=== PATIENT | female | born 1995 | race Caucasian/White ===

== ENCOUNTER 2016-11-05 20:50 | Emergency (ER) | payer MEDICAID ==
--- NOTE | 2016-11-05 21:11 | EDM.PDOC ---
ED HPI Allergic Reaction - General Chief Complaint: Allergic Reaction Stated Complaint: ALLERGIC REACTION Time Seen by Provider: 11/05/16 20:57 Source of Information: Reports: Patient, Family (Boyfriend) History Limitations: Reports: No limitations - History of Present Illness INITIAL COMMENTS - FREE TEXT/NARRATIVE: Presents with her boyfriend who reports an anaphylactic reaction. 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 The patient and her boyfriend were out to dinner, she had a dessert that a did not think had coconut in it but upon further investigation, it was the fifth ingredient. She had an EpiPen with her and it was injected as soon as symptoms began. - Related Data Allergies/ADRs: Allergies Allergy/AdvReac Type Severity Reaction Status Date / Time coconut oil Allergy Anaphylactic Verified 11/05/16 20:54 Shock diphenhydramine Allergy Seizure Verified 11/05/16 20:54 [From Benadryl] metoclopramide [From Reglan] Allergy Agitation Verified 11/05/16 20:54 Home Meds: Home Meds levETIRAcetam [Keppra] 1 tab PO DAILY 06/29/16 [History] Albuterol Sulfate [Proair Respiclick] 1 puff INH ASDIRECTED 09/04/16 [History] Fluticasone/Salmeterol [Advair Diskus 500-50] 1 puff INH ASDIRECTED 09/04/16 [ History] EPINEPHrine [Epipen 2-Foster] 0.3 mg IJ ONETIME #0.3 ml 11/05/16 [Rx] Past Medical History HEENT History: Reports: None Cardiovascular History: Reports: None, Other (see below) Other Cardiovascular History: abnormal heart beat Respiratory History: Reports: Asthma Gastrointestinal History: Reports: None Genitourinary History: Reports: None [employer]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 Musculoskeletal History: Reports: None Neurological History: Reports: Seizure Psychiatric History: Reports: Anxiety, Depression Endocrine/Metabolic History: Reports: None Hematologic History: Reports: None Oncologic (Cancer) History: Reports: None Dermatologic History: Reports: None - Infectious Disease History Infectious Disease History: Reports: None - Past Surgical History HEENT Surgical History: Reports: Tonsillectomy Social & Family History - Family History Family Medical History: Noncontributory - Tobacco Use Smoking Status *Q: Never Smoker Second Hand Smoke Exposure: No - Caffeine Use Caffeine Use: Reports: Coffee - Recreational Drug Use Recreational Drug Use: No ED ROS ALLERGIC REACTION - Review of Systems Review Of Systems: ROS reveals no pertinent complaints other than HPI. ED EXAM GENERAL NO PERIP PULSE - Physical Exam Exam: See Below Exam Limited By: Other (initially obtunded) General Appearance: alert, no apparent distress Ears: normal external exam Nose: normal inspection Throat/Mouth: Normal inspection, Normal oropharynx Head: atraumatic, normocephalic Neck: normal inspection Respiratory/Chest: no respiratory distress, lungs clear, normal breath sounds, no accessory muscle use Cardiovascular: normal peripheral pulses, regular rate, rhythm, no murmur, tachycardia GI/Abdominal: soft Extremities: normal inspection Neurological: other (Initially somewhat flaccid but quickly regained tone after arrival) Psychiatric: normal affect, normal mood Skin Exam: Warm, Dry, Intact, Normal color, No rash Lymphatic: no adenopathy Course - Vital Signs Last Recorded V/S: Last Vital Signs Temp 37.1 C 11/05/16 20:54 Pulse 125 H 11/05/16 20:54 Resp 23 H 11/05/16 20:54 BP 154/92 H 11/05/16 20:54 Pulse Ox 100 11/05/16 20:54 - Re-Assessments/Exams Free Text/Narrative Re-Assessment/Exam: 11/05/16 21:15 Now awake, alert orientated and asymptomatic. Her boyfriend is here with her. He states that she had an apple dessert that they had no idea that it would have coconut in it. After she started having problems with lightheadedness and anaphylaxis, he inspected the ingredients and coconut oil was the fifth ingredient. Departure - Departure Time of Disposition: 20:54 Disposition: Home, Self-Care 01 Clinical Impression: Anaphylaxis Qualifiers: Encounter type: initial encounter Qualified Code(s): T78.2XXA - Anaphylactic shock, unspecified, initial encounter Referrals: PCP,None [Primary Care Provider] - [facility] [Outside] [facility] [Outside] Additional Instructions: 1. read labels and avoid coconut products 2. EpiPen as needed for anaphylaxis
[2016-11-05 21:49] VITALS: BP 140/60
== END 2016-11-05 21:31 | disposition home or self-care (01) ==
LOC: MW.ED 20:50
DX: T78.2XXA Anaphylactic shock, unspecified, initial encounter (principal); Z88.8 Allergy status to other drugs, medicaments and biological substances; Z79.899 Other long term (current) drug therapy
CPT/HCPCS: 93005; 99283; 99284-25

== ENCOUNTER 2016-11-11 16:45 | Emergency (ER) | payer MEDICAID ==
[2016-11-11] MEDS ORDERED: Albuterol/Ipratropium 3.0-0.5 MG/3 ML Neb Soln NEB ONE (17:05)
--- NOTE | 2016-11-11 17:19 | EDM.PDOC ---
ED HISTORY OF PRESENT ILLNESS - General Chief Complaint: Respiratory Problem Stated Complaint: CONGESTION/EAR PAIN/TROUBLE BREATHING Time Seen by Provider: 11/11/16 17:00 Source of Information: Reports: Patient History Limitations: Reports: No limitations - History of Present Illness INITIAL COMMENTS - FREE TEXT/NARRATIVE: HISTORY AND PHYSICAL: History of present illness: [Patient comes to the emergency room complaining of 2 weeks of generalized fatigue and malaise. She's had headaches, clear runny nose, tight cough in her chest, and occasional face pain. She's felt fever and chills on and off during those 2 weeks. She has a history of asthma for which she takes Advair and albuterol when necessary. She's had several ill contacts. No abdominal pain nausea or vomiting. No change in bowel or bladder. Throat is sore at times. Ears have been uncomfortable for the past couple of days.] Review of systems: As per history of present illness and below otherwise all systems reviewed and negative. Past medical history: As per history of present illness and as reviewed below otherwise noncontributory. Surgical history: As per history of present illness and as reviewed below otherwise noncontributory. Social history: No reported history of drug or alcohol abuse. Family history: As per history of present illness and as reviewed below otherwise noncontributory. Physical exam: HEENT: Atraumatic, normocephalic. pupils reactive, negative for conjunctival pallor or scleral icterus, mucous membranes moist, throat clear, neck supple, nontender, trachea midline. Lungs: Clear to auscultation, breath sounds equal bilaterally, chest nontender. Heart: S1S2, regular, negative for clicks, rubs, or JVD. Abdomen: Soft, nondistended, nontender. Negative for masses or hepatosplenomegaly. Negative for costovertebral tenderness. Pelvis: Stable nontender. Genitourinary: Deferred. Rectal: Deferred. Extremities: Atraumatic, negative for cords or calf pain. Neurovascular unremarkable. Neuro: Awake, alert, oriented. Cranial nerves II through XII unremarkable. Cerebellum unremarkable. Motor and sensory unremarkable throughout. Exam nonfocal. Diagnostics: [Influenza swab] Therapeutics: [DuoNeb] Impression: [viral rhinitis] Plan: [Discussed w/ patient that influenza swab is negative. Ability to take deep breaths improved significantly following DuoNeb treatment. Discussed with patient that she has a viral syndrome. Recommend conservative supportive therapies. All questions are answered and concerns are addressed] Definitive disposition and diagnosis as appropriate pending reevaluation and review of above. - Related Data Allergies/ADRs: Allergies Allergy/AdvReac Type Severity Reaction Status Date / Time coconut oil Allergy Anaphylactic Verified 11/05/16 20:54 Shock diphenhydramine Allergy Seizure Verified 11/05/16 20:54 [From Benadryl] metoclopramide [From Reglan] Allergy Agitation Verified 11/05/16 20:54 narcotics Allergy Other Uncoded 11/11/16 17:05 Home Meds: Home Meds levETIRAcetam [Keppra] 2 tab PO BIDPC 06/29/16 [History] Albuterol Sulfate [Proair Respiclick] 1 puff INH ASDIRECTED 09/04/16 [History] Fluticasone/Salmeterol [Advair Diskus 500-50] 1 puff INH ASDIRECTED 09/04/16 [ History] EPINEPHrine [Epipen 2-Foster] 0.3 mg IJ ONETIME #0.3 ml 11/05/16 [Rx] Past Medical History HEENT History: Reports: None Cardiovascular History: Reports: None, Other (see below) Other Cardiovascular History: abnormal heart beat Respiratory History: Reports: Asthma Gastrointestinal History: Reports: None Genitourinary History: Reports: None 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 Musculoskeletal History: Reports: None Neurological History: Reports: Seizure Psychiatric History: Reports: Anxiety, Depression Endocrine/Metabolic History: Reports: None Hematologic History: Reports: None Oncologic (Cancer) History: Reports: None Dermatologic History: Reports: None - Infectious Disease History Infectious Disease History: Reports: None - Past Surgical History HEENT Surgical History: Reports: Tonsillectomy Social & Family History - Family History Family Medical History: Noncontributory - Tobacco Use Smoking Status *Q: Never Smoker Second Hand Smoke Exposure: No - Caffeine Use Caffeine Use: Reports: Coffee - Recreational Drug Use Recreational Drug Use: No ED ROS GENERAL - Review of Systems Review Of Systems: ROS reveals no pertinent complaints other than HPI. ED EXAM, GENERAL - Physical Exam Exam: See Below Course - Vital Signs Last Recorded V/S: Last Vital Signs Temp 98.1 F 11/11/16 18:30 Pulse 81 11/11/16 18:30 Resp 20 11/11/16 18:30 BP 102/64 11/11/16 18:30 Pulse Ox 96 11/11/16 18:30 - Orders/Labs/Meds Orders: Active Orders 24 hr Category Date Time Status RT Aerosol Therapy [RC] ASDIRECTED Care 11/11/16 17:05 Active Meds: Medications Discontinued Medications Generic Name Dose Route Start Last Admin Trade Name Freq PRN Reason Stop Dose Admin Albuterol/Ipratropium 3 ml 11/11/16 17:05 11/11/16 17:35 Duoneb 3.0-0.5 Mg/3 Ml NEB 11/11/16 17:06 3 ml ONETIME ONE Administration Departure - Departure Time of Disposition: 18:05 Disposition: Home, Self-Care 01 Condition: good Clinical Impression: Cold virus Instructions: Viral Respiratory Infection Referrals: PCP,None [Primary Care Provider] - Forms: ED Department Discharge Additional Instructions: The following information is given to patients seen in the emergency department who are being discharged to home. This information is to outline your options for follow-up care. We provide all patients seen in our emergency department with a follow-up referral. The need for follow-up, as well as the timing and circumstances, are variable depending upon the specifics of your emergency department visit. If you don't have a primary care physician on staff, we will provide you with a referral. We always advise you to contact your personal physician following an emergency department visit to inform them of the circumstance of the visit and for follow-up with them and/or the need for any referrals to a consulting specialist. The emergency department will also refer you to a specialist when appropriate. This referral assures that you have the opportunity for follow-up care with a specialist. All of these measure are taken in an effort to provide you with optimal care, which includes your follow-up. Under all circumstances we always encourage you to contact your private physician who remains a resource for coordinating your care. When calling for follow-up care, please make the office aware that this follow-up is from your recent emergency room visit. If for any reason you are refused follow-up, please contact the [facility] emergency department at and asked to speak to the emergency department charge nurse. [facility] [address] [place] [id number] Followup with your local primary care provider or at the clinic listed above in 48 hours. Tylenol or ibuprofen as needed for fever or discomfort. Robitussin or Delsym cough syrup as needed. Use albuterol inhaler 2 to 3 times daily. Handwashing to prevent spread illness this. Return to ER as needed as discussed - My Orders Last 24 Hours: My Active Orders 11/11/16 17:05 RT Aerosol Therapy [RC] ASDIRECTED - Assessment/Plan Last 24 Hours: My Active Orders 11/11/16 17:05 RT Aerosol Therapy [RC] ASDIRECTED
[2016-11-11 19:21] VITALS: BP 102/64
== END 2016-11-11 18:31 | disposition home or self-care (01) ==
LOC: MW.ED 16:45
DX: J31.0 Chronic rhinitis (principal); B97.89 Other viral agents as the cause of diseases classified elsewhere; J45.909 Unspecified asthma, uncomplicated; F41.8 Other specified anxiety disorders; Z98.890 Other specified postprocedural states; Z88.5 Allergy status to narcotic agent; Z88.8 Allergy status to other drugs, medicaments and biological substances
CPT/HCPCS: 87804; 94664; 99283-25; 99284

== ENCOUNTER 2016-11-20 14:49 | Emergency (ER) | payer MEDICAID ==
--- NOTE | 2016-11-20 15:05 | EDM.PDOC ---
<KaurMaria Del Carmen viera - Last Filed: 11/20/16 15:04> ED HPI HEADACHE COMPLAINT - General Chief Complaint: Headache Stated Complaint: HEADACHES Time Seen by Provider: 11/20/16 15:04 Source of Information: Reports: Patient History Limitations: Reports: No limitations - Related Data Allergies/ADRs: Allergies Allergy/AdvReac Type Severity Reaction Status Date / Time coconut oil Allergy Anaphylactic Verified 11/05/16 20:54 Shock diphenhydramine Allergy Seizure Verified 11/05/16 20:54 [From Benadryl] metoclopramide [From Reglan] Allergy Agitation Verified 11/05/16 20:54 narcotics Allergy Other Uncoded 11/11/16 17:05 Home Meds: Home Meds levETIRAcetam [Keppra] 2 tab PO BIDPC 06/29/16 [History] Albuterol Sulfate [Proair Respiclick] 1 puff INH ASDIRECTED 09/04/16 [History] Fluticasone/Salmeterol [Advair Diskus 500-50] 1 puff INH ASDIRECTED 09/04/16 [ History] EPINEPHrine [Epipen 2-Foster] 0.3 mg IJ ONETIME #0.3 ml 11/05/16 [Rx] SUMAtriptan [Imitrex] 25 mg PO ONETIME 11/20/16 [History] Past Medical History HEENT History: Reports: None Cardiovascular History: Reports: None, Other (see below) Other Cardiovascular History: abnormal heart beat "clicks" Respiratory History: Reports: Asthma Gastrointestinal History: Reports: None Genitourinary History: Reports: None [employer]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 Musculoskeletal History: Reports: None Neurological History: Reports: Migraines, Seizure Psychiatric History: Reports: Anxiety, Depression Endocrine/Metabolic History: Reports: None Hematologic History: Reports: None Oncologic (Cancer) History: Reports: None Dermatologic History: Reports: None - Infectious Disease History Infectious Disease History: Reports: None - Past Surgical History HEENT Surgical History: Reports: Tonsillectomy Cardiovascular Surgical History: Reports: None Respiratory Surgical History: Reports: None Neurological Surgical History: Reports: None Social & Family History - Family History Family Medical History: Noncontributory - Tobacco Use Smoking Status *Q: Never Smoker Second Hand Smoke Exposure: No - Caffeine Use Caffeine Use: Reports: Coffee, Energy drinks, Soda, Tea Caffeine Use Comment: no caffinee in 1 week - Recreational Drug Use Recreational Drug Use: No Course - Vital Signs Last Recorded V/S: Last Vital Signs Temp 37.0 C 11/20/16 14:57 Pulse 95 11/20/16 14:57 Resp 16 11/20/16 14:57 BP 125/75 11/20/16 14:57 Pulse Ox 97 11/20/16 14:57 - Orders/Labs/Meds Orders: Active Orders 24 hr Category Date Time Status EKG Documentation Completion [RC] STAT Care 11/20/16 15:09 Active DRUG SCREEN, URINE [URCHEM] Stat Lab 11/20/16 15:07 Uncollected Sodium Chloride 0.9% [Normal Saline] 1,000 ml Med 11/20/16 15:15 Active IV STAT Sodium Chloride 0.9% [Saline Flush] Med 11/20/16 15:07 Active 10 ml FLUSH ASDIRECTED PRN Sodium Chloride 0.9% [Saline Flush] Med 11/20/16 15:08 Active 10 ml FLUSH ASDIRECTED PRN Sodium Chloride 0.9% [Saline Flush] Med 11/20/16 15:07 Active 2.5 ml FLUSH ASDIRECTED PRN Sodium Chloride 0.9% [Saline Flush] Med 11/20/16 15:08 Active 2.5 ml FLUSH ASDIRECTED PRN Saline Lock Insert [OM.PC] Stat Oth 11/20/16 15:08 Ordered Saline Lock Insert [OM.PC] Stat Oth 11/20/16 15:09 Ordered Medication Orders Sodium Chloride (Normal Saline) 1,000 mls @ 999 mls/hr IV STAT JEROYM Sodium Chloride (Saline Flush) 10 ml FLUSH ASDIRECTED PRN PRN Reason: Keep Vein Open Sodium Chloride (Saline Flush) 2.5 ml FLUSH ASDIRECTED PRN PRN Reason: Keep Vein Open Sodium Chloride (Saline Flush) 10 ml FLUSH ASDIRECTED PRN PRN Reason: Keep Vein Open Sodium Chloride (Saline Flush) 2.5 ml FLUSH ASDIRECTED PRN PRN Reason: Keep Vein Open Labs: Laboratory Tests 11/20/16 11/20/16 Range/Units 15:33 15:33 WBC 9.41 (4.0-11.0) K/uL RBC 4.90 (4.30-5.90) M/uL Hgb 13.6 (12.0-16.0) g/dL Hct 40.9 (36.0-46.0) % MCV 83.5 (80.0-98.0) fL MCH 27.8 (27.0-32.0) pg MCHC 33.3 (31.0-37.0) g/dL RDW Std Deviation 38.0 (28.0-62.0) fl RDW Coeff of Roger 13 (11.0-15.0) % Plt Count 216 (150-400) K/uL MPV 10.20 (7.40-12.00) fL Neut % (Auto) 71.6 (48.0-80.0) % Lymph % (Auto) 19.9 (16.0-40.0) % Mcdonough % (Auto) 6.6 (0.0-15.0) % Eos % (Auto) 1.6 (0.0-7.0) % Baso % (Auto) 0.3 (0.0-1.5) % Neut # 6.7 H (1.4-5.7) K/uL Lymph # 1.9 (0.6-2.4) K/uL Mcdonough # 0.6 (0.0-0.8) K/uL Eos # 0.2 (0.0-0.7) K/uL Baso # 0.0 (0.0-0.1) K/uL Nucleated RBC % 0.0 /100WBC Nucleated RBCs # 0 K/uL Sodium 140 (136-146) mmol/L Potassium 3.8 (3.5-5.1) mmol/L Chloride 106 (98-110) mmol/L Carbon Dioxide 27 (21-31) mmol/L BUN 13 (6.0-23.0) mg/dL Creatinine 0.7 (0.6-1.5) mg/dL Est Cr Clr Drug Dosing 106.05 mL/min Estimated GFR (MDRD) > 60.0 ml/min Glucose 104 (60-110) mg/dL Calcium 9.0 (8.8-10.8) mg/dL Meds: Medications Generic Name Dose Route Start Last Admin Trade Name Freq PRN Reason Stop Dose Admin Sodium Chloride 1,000 mls @ 999 mls/hr 11/20/16 15:15 Normal Saline IV STAT JEROMY Sodium Chloride 10 ml 11/20/16 15:08 Saline Flush FLUSH ASDIRECTED PRN Keep Vein Open Sodium Chloride 2.5 ml 11/20/16 15:08 Saline Flush FLUSH ASDIRECTED PRN Keep Vein Open Sodium Chloride 10 ml 11/20/16 15:07 Saline Flush FLUSH ASDIRECTED PRN Keep Vein Open Sodium Chloride 2.5 ml 11/20/16 15:07 Saline Flush FLUSH ASDIRECTED PRN Keep Vein Open Discontinued Medications Generic Name Dose Route Start Last Admin Trade Name Mary PRN Reason Stop Dose Admin Sodium Chloride 1,000 mls @ 999 mls/hr 11/20/16 15:08 11/20/16 15:35 Normal Saline IV 11/20/16 16:08 999 mls/hr STAT ONE Administration Ketorolac Tromethamine 30 mg 11/20/16 15:08 Toradol IVPUSH 11/20/16 15:09 ONETIME ONE Ketorolac Tromethamine 30 mg 11/20/16 15:11 11/20/16 15:35 Toradol IVPUSH 11/20/16 15:12 30 mg ONETIME ONE Administration Prochlorperazine Edisylate 5 mg 11/20/16 15:08 11/20/16 15:35 Compazine IM 11/20/16 15:09 5 mg ONETIME ONE Administration Departure - Departure Disposition: Home, Self-Care 01 Clinical Impression: Seizure, Migraine, Migraine, Seizure disorder Instructions: Recurrent Migraine Headache, [id number] Referrals: PCP,None [Primary Care Provider] - Forms: ED Department Discharge Additional Instructions: You had symptoms of a migraine headache today. Use Motrin and Tylenol as needed for pain. Follow up with your DrGerald tomorrow. Your CAT scan and labs were unremarkable. Continue your seizure medicine as prescribed and followup with your neurologist. - My Orders Last 24 Hours: My Active Orders 11/20/16 15:07 DRUG SCREEN, URINE [URCHEM] Stat Sodium Chloride 0.9% [Saline Flush] 10 ml FLUSH ASDIRECTED PRN Sodium Chloride 0.9% [Saline Flush] 2.5 ml FLUSH ASDIRECTED PRN 11/20/16 15:09 EKG Documentation Completion [RC] STAT Saline Lock Insert [OM.PC] Stat 11/20/16 15:15 Sodium Chloride 0.9% [Normal Saline] 1,000 ml IV STAT - Assessment/Plan Last 24 Hours: My Active Orders 11/20/16 15:07 DRUG SCREEN, URINE [URCHEM] Stat Sodium Chloride 0.9% [Saline Flush] 10 ml FLUSH ASDIRECTED PRN Sodium Chloride 0.9% [Saline Flush] 2.5 ml FLUSH ASDIRECTED PRN 11/20/16 15:09 EKG Documentation Completion [RC] STAT Saline Lock Insert [OM.PC] Stat 11/20/16 15:15 Sodium Chloride 0.9% [Normal Saline] 1,000 ml IV STAT <Bebeto Headley - Last Filed: 11/20/16 17:07> ED HPI HEADACHE COMPLAINT - General Source of Information: Reports: Patient History Limitations: Reports: No limitations - History of Present Illness INITIAL COMMENTS - FREE TEXT/NARRATIVE: HISTORY AND PHYSICAL: History of present illness: [21-year-old female with a history of seizures states she's compliant with her Keppra and sees a neurologist regularly, also with a history of migraines for which she discharged taking Imitrex, now came to the emergency department complaining of headache patient had gradual onset of migraine headache typical for her several hours ago. She has photophobia. Denies fever or stiff neck. Patient feels lightheaded and felt like she might faint in the waiting room. No chest pain or shortness of air. The bowel bladder habits denies possibility of patient has no focal neurologic complaints the] Review of systems: As per history of present illness and below otherwise all systems reviewed and negative. Past medical history: As per history of present illness and as reviewed below otherwise noncontributory. Surgical history: As per history of present illness and as reviewed below otherwise noncontributory. Social history: No reported history of drug or alcohol abuse. Family history: As per history of present illness and as reviewed below otherwise noncontributory. Physical exam: Patient alert but clearly pretending to have waxing and waning consciousness. Fluttering eyelids and variable compliance with exam, intermittently smiling. HEENT: Atraumatic, normocephalic, pupils reactive, negative for conjunctival pallor or scleral icterus, mucous membranes moist, throat clear, neck supple, nontender, trachea midline. Lungs: Clear to auscultation, breath sounds equal bilaterally, chest nontender. Heart: S1S2, regular, negative for clicks, rubs, or JVD. Abdomen: Soft, nondistended, nontender. Negative for masses or hepatosplenomegaly. Negative for costovertebral tenderness. Pelvis: Stable nontender. Genitourinary: Deferred. Rectal: Deferred. Extremities: Atraumatic, negative for cords or calf pain. Neurovascular unremarkable. Neuro: Awake, alert, oriented. Cranial nerves II through XII unremarkable. Cerebellum unremarkable. Motor and sensory unremarkable throughout. Exam nonfocal. Diagnostics: [] Therapeutics: [] Impression: [Migraine headache, seizure] Plan: [Signs and symptoms consistent with migraine typical for patient complicated by significant history of attention seeking manipulative behavior. Patient is known to your emergency medicine service for presentations of feining altered mental status and emotional lability. CT of the head unremarkable. Seizure typical for patient's history of seizures. Nonfocal neurologic exam. Labs unremarkable. Patient feels improved after meds and IV fluids. She is refusing to provide a urine sample for urine drug screen. Patient is alert and communicative and feels improved. No further workup or treatment clinically indicated at this time. She agrees with outpatient followup strict return precautions given. Definitive disposition and diagnosis as appropriate pending reevaluation and review of above. ED ROS GENERAL - Review of Systems Review Of Systems: See Below (See history of present illness) - Physical Exam Exam: See Below (See history of present illness) EKG INTERPRETATION EKG Date: 11/20/16 Rhythm: NSR Rate (beats/min): 86 [place]: normal EKG Interpretation Comments: Normal sinus rhythm at 86 normal axis no STEMI normal study Course - Orders/Labs/Meds Labs: Laboratory Tests 11/20/16 11/20/16 Range/Units 15:33 15:33 WBC 9.41 (4.0-11.0) K/uL RBC 4.90 (4.30-5.90) M/uL Hgb 13.6 (12.0-16.0) g/dL Hct 40.9 (36.0-46.0) % MCV 83.5 (80.0-98.0) fL MCH 27.8 (27.0-32.0) pg MCHC 33.3 (31.0-37.0) g/dL RDW Std Deviation 38.0 (28.0-62.0) fl RDW Coeff of Roger 13 (11.0-15.0) % Plt Count 216 (150-400) K/uL MPV 10.20 (7.40-12.00) fL Neut % (Auto) 71.6 (48.0-80.0) % Lymph % (Auto) 19.9 (16.0-40.0) % Mcdonough % (Auto) 6.6 (0.0-15.0) % Eos % (Auto) 1.6 (0.0-7.0) % Baso % (Auto) 0.3 (0.0-1.5) % Neut # 6.7 H (1.4-5.7) K/uL Lymph # 1.9 (0.6-2.4) K/uL Mcdonough # 0.6 (0.0-0.8) K/uL Eos # 0.2 (0.0-0.7) K/uL Baso # 0.0 (0.0-0.1) K/uL Nucleated RBC % 0.0 /100WBC Nucleated RBCs # 0 K/uL Sodium 140 (136-146) mmol/L Potassium 3.8 (3.5-5.1) mmol/L Chloride 106 (98-110) mmol/L Carbon Dioxide 27 (21-31) mmol/L BUN 13 (6.0-23.0) mg/dL Creatinine 0.7 (0.6-1.5) mg/dL Est Cr Clr Drug Dosing 106.05 mL/min Estimated GFR (MDRD) > 60.0 ml/min Glucose 104 (60-110) mg/dL Calcium 9.0 (8.8-10.8) mg/dL Departure - Departure Time of Disposition: 17:00 Condition: good
[2016-11-20] MEDS ORDERED: Sodium Chloride 0.9% 10 ML Syringe FLUSH PRN ×2 (15:07→15:08)
[2016-11-20] MEDS ORDERED: Sodium Chloride 0.9% 2.5 ML Syringe FLUSH PRN ×2 (15:07→15:08)
[2016-11-20] MEDS ORDERED: Prochlorperazine 10 MG/2 ML SDV IM ONE (15:08)
[2016-11-20] MEDS ORDERED: Ketorolac 30 MG/ML SDV IVPUSH ONE ×2 (15:08→15:11)
[2016-11-20] MEDS ORDERED: Sodium Chloride 0.9% 1,000 ML IV ONE (15:08)
[2016-11-20] MEDS ORDERED: Sodium Chloride 0.9% 1,000 ML IV SCH (15:15)
[2016-11-20 16:13] LABS: CHLORIDE,CL 106 mmol/L (98-110); SODIUM,NA 140 mmol/L (136-146)
--- NOTE | 2016-11-20 16:15 | CT ---
EXAMINATION: Non contrast CT head. Coronal and sagittal reformats. HISTORY: Headache FINDINGS: No evidence of intra or extra axial hemorrhage, mass, midline shift, hydrocephalus or edema. No hypoattenuation changes in the major vascular territories to suggest acute infarct. No abnormal intracranial calcifications are detected. No evidence of substantial vascular calcifica tions. Paranasal sinuses and mastoid air cells are well aerated without substantial findings. The orbits a nd globes appear symmetric. Pituitary fossa appears unremarkable. Calvarium is intact. No evidence of skull fracture. IMPRESSION: No acute intracranial findings.
[2016-11-20 17:45] VITALS: BP 124/73
== END 2016-11-20 17:30 | disposition home or self-care (01) ==
LOC: MW.ED 14:49
DX: G43.909 Migraine, unspecified, not intractable, without status migrainosus (principal); R56.9 Unspecified convulsions; J45.909 Unspecified asthma, uncomplicated; F41.9 Anxiety disorder, unspecified; F33.9 Major depressive disorder, recurrent, unspecified; Z79.899 Other long term (current) drug therapy; Z79.51 Long term (current) use of inhaled steroids; Z88.5 Allergy status to narcotic agent; Z88.8 Allergy status to other drugs, medicaments and biological substances; Z91.018 Allergy to other foods
CPT/HCPCS: 36415; 70450; 80048; 85025; 93005; 96361; 96372; 96374; 99284; J0780; J1885; J7040

== ENCOUNTER 2016-12-14 12:18 | Emergency (ER) | payer MEDICAID ==
--- NOTE | 2016-12-14 12:47 | EDM.PDOC ---
ED HPI ENT - General Chief Complaint: ENT Problem Stated Complaint: SORE THROAT Time Seen by Provider: 12/14/16 12:40 Source of Information: Reports: Patient History Limitations: Reports: No limitations - History of Present Illness INITIAL COMMENTS - FREE TEXT/NARRATIVE: HISTORY AND PHYSICAL: History of present illness: [Patient comes to the emergency room complaining of exquisitely sore throat for the past 4 days. She had temps up to 102 which was taken this morning. She has swollen lymph nodes in her neck and difficulty moving her neck due to discomfort. No runny nose or cough. Denies chest pain shortness of breath and difficulty breathing. Occasional nausea, but no vomiting or abdominal pain. Denies dysuria. Bilateral earaches without drainage in her ears. Has not taken any medications for her symptoms. Has a history of viral meningitis during childhood. History of tonsillectomy at age 10.] Review of systems: As per history of present illness and below otherwise all systems reviewed and negative. Past medical history: As per history of present illness and as reviewed below otherwise noncontributory. Surgical history: As per history of present illness and as reviewed below otherwise noncontributory. Social history: No reported history of drug or alcohol abuse. Family history: As per history of present illness and as reviewed below otherwise noncontributory. Physical exam: HEENT: Atraumatic, normocephalic. TMs are pearly staples with mild effusions present bilaterally. No erythema or injection. Eyes are clear. Nares are patent and without discharge. Oral mucous membranes are pink and moist. No posterior oropharyngeal swelling or exudate. Mild erythema. Neck is supple, is tender with palpation over cervical lymph nodes but no shininess is appreciated. Face and sinuses are nontender with palpation. Lungs: Clear to auscultation, breath sounds equal bilaterally. Heart: S1S2, regular rate and rhythm. Abdomen: Soft, nondistended. Mild generalized tenderness over abdomen. Negative for masses, guarding or rebound. Pelvis: Stable nontender. Genitourinary: Deferred. Rectal: Deferred. Extremities: Atraumatic, gait is normal. Neurovascular unremarkable. Neuro: Awake, alert, oriented. Cranial nerves II through XII unremarkable. Exam nonfocal. Diagnostics: [Strep swab] Impression: [Streptococcal pharyngitis] Plan: [Patient is prescribed Pen V K 500mg (#30) si po TID x 10 days 0 RF's. Recommend Tylenol and warm salt water gargles as needed for discomfort. Followup with primary care. She is in agreement with today's plan. All of her questions are answered and concerns are addressed. ] Definitive disposition and diagnosis as appropriate pending reevaluation and review of above. - Related Data Allergies/ADRs: Allergies Allergy/AdvReac Type Severity Reaction Status Date / Time coconut oil Allergy Anaphylactic Verified 12/14/16 12:33 Shock diphenhydramine Allergy Seizure Verified 12/14/16 12:33 [From Benadryl] metoclopramide [From Reglan] Allergy Agitation Verified 12/14/16 12:33 narcotics Allergy Other Uncoded 12/14/16 12:33 Home Meds: Home Meds levETIRAcetam [Keppra] 2 tab PO BIDPC 06/29/16 [History] Albuterol Sulfate [Proair Respiclick] 1 puff INH ASDIRECTED 09/04/16 [History] Fluticasone/Salmeterol [Advair Diskus 500-50] 1 puff INH ASDIRECTED 09/04/16 [ History] EPINEPHrine [Epipen 2-Foster] 0.3 mg IJ ONETIME #0.3 ml 11/05/16 [Rx] SUMAtriptan [Imitrex] 25 mg PO ONETIME 11/20/16 [History] Cetirizine [ZyrTEC] 10 mg PO DAILY 12/14/16 [History] Melatonin 5 mg PO QPM 12/14/16 [History] PNV95/Ferrous Fumarate/FA [ Tablet] 1 each PO DAILY 12/14/16 [History] Vitamin B Complex 1 each PO DAILY 12/14/16 [History] Past Medical History HEENT History: Reports: None Cardiovascular History: Reports: None Other Cardiovascular History: abnormal heart beat "clicks" Respiratory History: Reports: Asthma Gastrointestinal History: Reports: None Genitourinary History: Reports: None 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 Musculoskeletal History: Reports: None Neurological History: Reports: Migraines, Seizure Psychiatric History: Reports: Anxiety, Depression Endocrine/Metabolic History: Reports: None Hematologic History: Reports: None Immunologic History: Reports: None Oncologic (Cancer) History: Reports: None Dermatologic History: Reports: None - Infectious Disease History Infectious Disease History: Reports: None - Past Surgical History Head Surgeries/Procedures: Reports: None HEENT Surgical History: Reports: Tonsillectomy Cardiovascular Surgical History: Reports: None Respiratory Surgical History: Reports: None GI Surgical History: Reports: None Female Surgical History: Reports: None Endocrine Surgical History: Reports: None Neurological Surgical History: Reports: None Musculoskeletal Surgical History: Reports: Other (see below) Other Musculoskeletal Surgeries/Procedures:: Cyst removed from left wrist Dermatological Surgical History: Reports: None Social & Family History - Family History Family Medical History: Noncontributory - Tobacco Use Smoking Status *Q: Never Smoker Second Hand Smoke Exposure: No - Caffeine Use Caffeine Use: Reports: None Caffeine Use Comment: no caffinee in 1 week - Recreational Drug Use Recreational Drug Use: No ED ROS ENT - Review of Systems Review Of Systems: ROS reveals no pertinent complaints other than HPI. ED EXAM, ENT - Physical Exam Exam: See Below Course - Vital Signs Last Recorded V/S: Last Vital Signs Temp 98.6 F 12/14/16 12:30 Pulse 93 12/14/16 12:30 Resp 16 12/14/16 12:30 BP 130/78 12/14/16 12:30 Pulse Ox 98 12/14/16 12:30 Departure - Departure Time of Disposition: 13:40 Disposition: Home, Self-Care 01 Condition: good Clinical Impression: Strep pharyngitis Instructions: Strep Throat Referrals: PCP,None [Primary Care Provider] - Forms: ED Department Discharge Additional Instructions: The following information is given to patients seen in the emergency department who are being discharged to home. This information is to outline your options for follow-up care. We provide all patients seen in our emergency department with a follow-up referral. The need for follow-up, as well as the timing and circumstances, are variable depending upon the specifics of your emergency department visit. If you don't have a primary care physician on staff, we will provide you with a referral. We always advise you to contact your personal physician following an emergency department visit to inform them of the circumstance of the visit and for follow-up with them and/or the need for any referrals to a consulting specialist. The emergency department will also refer you to a specialist when appropriate. This referral assures that you have the opportunity for follow-up care with a specialist. All of these measure are taken in an effort to provide you with optimal care, which includes your follow-up. Under all circumstances we always encourage you to contact your private physician who remains a resource for coordinating your care. When calling for follow-up care, please make the office aware that this follow-up is from your recent emergency room visit. If for any reason you are refused follow-up, please contact the [facility] emergency department at and asked to speak to the emergency department charge nurse. [facility] [address] [place] [id number] You have strep throat. Take Tylenol as needed for fever or discomfort. Warm saltwater gargles, throat lozenges or cough drops may help with her throat discomfort. Take antibiotics as prescribed Return to ER as needed as discussed.
[2016-12-14 13:49] VITALS: BP 128/78
== END 2016-12-14 13:47 | disposition home or self-care (01) ==
LOC: MW.ED 12:18
DX: J02.0 Streptococcal pharyngitis (principal); Z88.5 Allergy status to narcotic agent; Z88.6 Allergy status to analgesic agent; Z88.8 Allergy status to other drugs, medicaments and biological substances; Z98.890 Other specified postprocedural states
CPT/HCPCS: 87880; 99282; 99283

== ENCOUNTER 2016-12-30 06:45 | Emergency (ER) | payer MEDICAID ==
[2016-12-30] MEDS ORDERED: Ketorolac 30 MG/ML SDV IVPUSH ONE (07:08)
[2016-12-30] MEDS ORDERED: Sodium Chloride 0.9% 1,000 ML IV ONE (07:08)
[2016-12-30] MEDS ORDERED: Acetaminophen/Codeine 120-12 MG/5 ML Soln 5 ML UD Cup PO ONE ×2 (07:09→07:23)
--- NOTE | 2016-12-30 07:43 | EDM.PDOC ---
ED HPI GENERAL MEDICAL PROBLEM - General Chief Complaint: ENT Problem Stated Complaint: SORE THROAT Time Seen by Provider: 12/30/16 06:55 - History of Present Illness INITIAL COMMENTS - FREE TEXT/NARRATIVE: HISTORY AND PHYSICAL: History of present illness: Patient is a 21-year-old white female she concern of sore throat patient was diagnosed with strep pharyngitis recently and had a full course of antibiotics he states his pain has worsened today she denies fever chills nausea vomiting. Review of systems: As per history of present illness and below otherwise all systems reviewed and negative. Past medical history: As per history of present illness and as reviewed below otherwise noncontributory. Surgical history: As per history of present illness and as reviewed below otherwise noncontributory. Social history: No reported history of drug or alcohol abuse. Family history: As per history of present illness and as reviewed below otherwise noncontributory. Physical exam: HEENT: Atraumatic, normocephalic, pupils reactive, negative for conjunctival pallor or scleral icterus, mucous membranes moist, throat mildly injected no peritonsillar fullness no uvular deviation, neck supple, nontender, trachea midline. Lungs: Clear to auscultation, breath sounds equal bilaterally, chest nontender. Heart: S1S2, regular, negative for clicks, rubs, or JVD. Abdomen: Soft, nondistended, nontender. Negative for masses or hepatosplenomegaly. Negative for costovertebral tenderness. Pelvis: Stable nontender. Genitourinary: Deferred. Rectal: Deferred. Extremities: Atraumatic, negative for cords or calf pain. Neurovascular unremarkable. Neuro: Awake, alert, oriented. Cranial nerves II through XII unremarkable. Cerebellum unremarkable. Motor and sensory unremarkable throughout. Exam nonfocal. Diagnostics: CBC CMP lactic acid CT neck strep screen and mono screen throat Therapeutics: Normal saline 1 L bolus Rocephin 1 g IV Tylenol with codeine 5 cc by mouth Toradol 30 mg IV Impression: #1 pharyngitis Definitive disposition and diagnosis as appropriate pending reevaluation and review of above. Throat Pain Score (Numeric/FACES): 9 - Related Data Allergies Allergy/AdvReac Type Severity Reaction Status Date / Time coconut oil Allergy Anaphylactic Verified 12/30/16 06:47 Shock diphenhydramine Allergy Seizure Verified 12/30/16 06:47 [From Benadryl] metoclopramide [From Reglan] Allergy Agitation Verified 12/30/16 06:47 narcotics Allergy Other Uncoded 12/30/16 06:47 Home Meds: Home Meds levETIRAcetam [Keppra] 2 tab PO BIDPC 06/29/16 [History] Albuterol Sulfate [Proair Respiclick] 1 puff INH ASDIRECTED 09/04/16 [History] Fluticasone/Salmeterol [Advair Diskus 500-50] 1 puff INH ASDIRECTED 09/04/16 [ History] EPINEPHrine [Epipen 2-Foster] 0.3 mg IJ ONETIME #0.3 ml 11/05/16 [Rx] SUMAtriptan [Imitrex] 25 mg PO ONETIME 11/20/16 [History] Cetirizine [ZyrTEC] 10 mg PO DAILY 12/14/16 [History] Melatonin 5 mg PO QPM 12/14/16 [History] PNV95/Ferrous Fumarate/FA [ Tablet] 1 each PO DAILY 12/14/16 [History] Vitamin B Complex 1 each PO DAILY 12/14/16 [History] Past Medical History HEENT History: Reports: None Cardiovascular History: Reports: None Other Cardiovascular History: abnormal heart beat "clicks" Respiratory History: Reports: Asthma Gastrointestinal History: Reports: None Genitourinary History: Reports: None 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 Musculoskeletal History: Reports: None Neurological History: Reports: Migraines, Seizure Psychiatric History: Reports: Anxiety, Depression Endocrine/Metabolic History: Reports: None Hematologic History: Reports: None Immunologic History: Reports: None Oncologic (Cancer) History: Reports: None Dermatologic History: Reports: None - Infectious Disease History Infectious Disease History: Reports: None - Past Surgical History Head Surgeries/Procedures: Reports: None HEENT Surgical History: Reports: Tonsillectomy Cardiovascular Surgical History: Reports: None Respiratory Surgical History: Reports: None GI Surgical History: Reports: None Female Surgical History: Reports: None Endocrine Surgical History: Reports: None Neurological Surgical History: Reports: None Musculoskeletal Surgical History: Reports: Other (see below) Other Musculoskeletal Surgeries/Procedures:: Cyst removed from left wrist Dermatological Surgical History: Reports: None Social & Family History - Family History Family Medical History: Noncontributory - Tobacco Use Smoking Status *Q: Never Smoker Second Hand Smoke Exposure: No - Caffeine Use Caffeine Use: Reports: None Caffeine Use Comment: no caffinee in 1 week - Recreational Drug Use Recreational Drug Use: No ED ROS GENERAL - Review of Systems Review Of Systems: ROS reveals no pertinent complaints other than HPI. ED EXAM, GENERAL - Physical Exam Exam: See Below (See dictation) Course - Vital Signs Last Recorded V/S: Last Vital Signs Temp 36.4 C 12/30/16 09:09 Pulse 83 12/30/16 09:09 Resp 18 12/30/16 09:09 BP 111/60 12/30/16 09:09 Pulse Ox 97 12/30/16 09:09 - Orders/Labs/Meds Orders: Active Orders 24 hr Category Date Time Status CULTURE THROAT [RM] Stat Lab 12/30/16 07:25 Received Labs: Laboratory Tests 12/30/16 12/30/16 12/30/16 Range/Units 07:26 07:26 07:26 WBC 21.65 H (4.0-11.0) K/uL RBC 4.93 (4.30-5.90) M/uL Hgb 13.8 (12.0-16.0) g/dL Hct 40.8 (36.0-46.0) % MCV 82.8 (80.0-98.0) fL MCH 28.0 (27.0-32.0) pg MCHC 33.8 (31.0-37.0) g/dL RDW Std Deviation 37.9 (28.0-62.0) fl RDW Coeff of Roger 13 (11.0-15.0) % Plt Count 196 (150-400) K/uL MPV 10.40 (7.40-12.00) fL Neut % (Auto) 88.0 H (48.0-80.0) % Lymph % (Auto) 7.3 L (16.0-40.0) % [place] % (Auto) 4.5 (0.0-15.0) % Eos % (Auto) 0.1 (0.0-7.0) % Baso % (Auto) 0.1 (0.0-1.5) % Neut # (Auto) 19.0 H (1.4-5.7) K/uL Lymph # (Auto) 1.6 (0.6-2.4) K/uL [place] # (Auto) 1.0 H (0.0-0.8) K/uL Eos # (Auto) 0.0 (0.0-0.7) K/uL Baso # (Auto) 0.0 (0.0-0.1) K/uL Nucleated RBC % 0.0 /100WBC Nucleated RBCs # 0 K/uL Lactate 0.8 (0.20-2.00) mmol/L Sodium 137 (136-146) mmol/L Potassium 3.7 (3.5-5.1) mmol/L Chloride 108 (98-110) mmol/L Carbon Dioxide 19 L (21-31) mmol/L BUN 10 (6.0-23.0) mg/dL Creatinine 0.7 (0.6-1.5) mg/dL Est Cr Clr Drug Dosing 106.05 mL/min Estimated GFR (MDRD) > 60.0 ml/min Glucose 102 (60-110) mg/dL Calcium 9.2 (8.8-10.8) mg/dL Total Bilirubin 2.6 H (0.1-1.5) mg/dL AST 15 (5-40) IU/L ALT 13 (8-54) IU/L Alkaline Phosphatase 61 (40-150) Total Protein 7.7 (6.0-8.0) g/dL Albumin 4.2 (3.5-5.0) g/dL Globulin 3.5 (2.0-3.5) g/dL Albumin/Globulin Ratio 1.2 L (1.3-2.8) Monoscreen (NEG) 12/30/16 Range/Units 07:26 WBC (4.0-11.0) K/uL RBC (4.30-5.90) M/uL Hgb (12.0-16.0) g/dL Hct (36.0-46.0) % MCV (80.0-98.0) fL MCH (27.0-32.0) pg MCHC (31.0-37.0) g/dL RDW Std Deviation (28.0-62.0) fl RDW Coeff of Roger (11.0-15.0) % Plt Count (150-400) K/uL MPV (7.40-12.00) fL Neut % (Auto) (48.0-80.0) % Lymph % (Auto) (16.0-40.0) % [place] % (Auto) (0.0-15.0) % Eos % (Auto) (0.0-7.0) % Baso % (Auto) (0.0-1.5) % Neut # (Auto) (1.4-5.7) K/uL Lymph # (Auto) (0.6-2.4) K/uL [place] # (Auto) (0.0-0.8) K/uL Eos # (Auto) (0.0-0.7) K/uL Baso # (Auto) (0.0-0.1) K/uL Nucleated RBC % /100WBC Nucleated RBCs # K/uL Lactate (0.20-2.00) mmol/L Sodium (136-146) mmol/L Potassium (3.5-5.1) mmol/L Chloride (98-110) mmol/L Carbon Dioxide (21-31) mmol/L BUN (6.0-23.0) mg/dL Creatinine (0.6-1.5) mg/dL Est Cr Clr Drug Dosing mL/min Estimated GFR (MDRD) ml/min Glucose (60-110) mg/dL Calcium (8.8-10.8) mg/dL Total Bilirubin (0.1-1.5) mg/dL AST (5-40) IU/L ALT (8-54) IU/L Alkaline Phosphatase (40-150) Total Protein (6.0-8.0) g/dL Albumin (3.5-5.0) g/dL Globulin (2.0-3.5) g/dL Albumin/Globulin Ratio (1.3-2.8) Monoscreen NEGATIVE (NEG) Meds: Medications Discontinued Medications Generic Name Dose Route Start Last Admin Trade Name Freq PRN Reason Stop Dose Admin Acetaminophen/Codeine Phosphate 5 ml 12/30/16 07:09 12/30/16 07:25 Tylenol/Codeine 120-12 Mg/5 Ml PO 12/30/16 07:10 5 ml ONETIME ONE Administration Acetaminophen/Codeine Phosphate 5 ml 12/30/16 07:23 12/30/16 07:25 Tylenol/Codeine 120-12 Mg/5 Ml PO 12/30/16 07:24 Not Given ONETIME ONE Sodium Chloride 1,000 mls @ 999 mls/hr 12/30/16 07:08 12/30/16 07:22 Normal Saline IV 12/30/16 08:08 999 mls/hr STAT ONE Administration Ceftriaxone Sodium 1,000 mg/ 50 mls @ 200 mls/hr 12/30/16 08:16 12/30/16 08: 29 Sodium Chloride IV 12/30/16 08:30 Not Given ONETIME ONE Ceftriaxone Sodium/Dextrose 1 50 mls @ 100 mls/hr 12/30/16 08:18 12/30/16 08: 29 gm/ Premix IV 12/30/16 08:47 100 mls/hr ONETIME ONE Administration Ceftriaxone Sodium/Dextrose Confirm 12/30/16 08:23 12/30/16 08:29 Rocephin In Dextrose,Iso-Osm 1 Gm/50 Ml Administered 12/30/16 08:24 Not Given Dose 50 mls @ as directed .ROUTE .STK-MED ONE Iopamidol 75 ml 12/30/16 09:39 12/30/16 09:39 Isovue Multipack-370 (76%) IVPUSH 12/30/16 09:40 75 ml ONETIME STA Administration Ketorolac Tromethamine 30 mg 12/30/16 07:08 12/30/16 07:22 Toradol IVPUSH 12/30/16 07:09 30 mg ONETIME ONE Administration Departure - Departure Time of Disposition: 08:30 Disposition: Home, Self-Care 01 Condition: good Clinical Impression: Pharyngitis Instructions: Strep Throat, [id number], Pharyngitis, [id number] Referrals: [facility] [Provider Group] PCP,None [Primary Care Provider] - Forms: ED Department Discharge - My Orders Last 24 Hours: My Active Orders 12/30/16 07:25 CULTURE THROAT [RM] Stat - Assessment/Plan Last 24 Hours: My Active Orders 12/30/16 07:25 CULTURE THROAT [RM] Stat
[2016-12-30 08:00] LABS: CHLORIDE,CL 108 mmol/L (98-110); SODIUM,NA 137 mmol/L (136-146)
[2016-12-30] MEDS ORDERED: cefTRIAXone 1,000 MG in Sodium Chloride 0.9% 50 ML IV ONE (08:16)
[2016-12-30] MEDS ORDERED: cefTRIAXone 1 GM in Premix Bag 1 BAG IV ONE (08:18)
[2016-12-30 09:11] VITALS: BP 111/60
[2016-12-30] MEDS ORDERED: Iopamidol 755 MG/ML 500 ML Multipack Bottle IVPUSH STA (09:39)
--- NOTE | 2016-12-30 11:24 | CT ---
EXAM DATE: 12/30/16 PATIENT'S AGE: 21 Patient: EMILY UGALDE Facility: [facility], [place] Site . Site : 1995 Study: CT ST Neck [id number]/24/2017 8:06:33 AM Ordering Physician: Ernie Tate Final Report: INDICATION: PAIN HISTORY: Neck pain. COMPARISON: None. TECHNIQUE: CT of the neck following intravenous contrast. 75 cc of Isovue-370 IV. Coronal/ sagittal reconstruction images. FINDINGS: There is no abnormal contrast enhancement within the supratentorial brain or posterior fossa. There is effacement of the landmarks in the nasopharynx, with diffuse soft tissue swelling. Specific, the torus tubarius and fossa Rosenmuller are not well seen. There is no displacement of the parapharyngeal fat. No drainable fluid collection. Aryepiglottic folds and piriform sinuses are within normal limits. The thyroid gland is symmetric. There are numerous, level IIa and IIb lymph nodes, which measure up to 16 mm in long axis dimension on series 201, image 37. The superior mediastinum is within normal limits. The intrathoracic trachea is patent. There is no apical pneumothorax. The parotid space, carotid space, paravertebral space, telephone order clerk space, and infratemporal fossa are within normal limits. The bone windows demonstrate no lytic or blastic bone lesions. The spinal canal and neural foramina are patent. Mastoid air cells of both temporal bones are clear. Pterygoid plates are intact. Paranasal sinuses are normal where visualized. Craniocervical junction and atlantoaxial joint are within normal limits. IMPRESSION: 1. Effacement of the landmarks in the nasopharynx. 2. Diffuse hypertrophy of the palatine tonsils. 3. No displacement of the parapharyngeal fat. No drainable fluid collection. 4. Level IIa and IIb lymphadenopathy appears symmetric, and presumably reactive in nature. 5. Report called to Dr. Klein, Emergency Department, 12/30/16, 0814 hours. Dictated by Andi Harris MD @ 12/30/2016 8:13:50 AM Dictated by: Andi Harris MD @ 12/30/2016 08:14:14 (Electronic Signature) Report Signed by Proxy and Original Signed Document filed in the Medical Record. BRIANNE
== END 2016-12-30 09:09 | disposition home or self-care (01) ==
LOC: MW.ED 06:45
DX: J02.9 Acute pharyngitis, unspecified (principal); J45.909 Unspecified asthma, uncomplicated; F41.9 Anxiety disorder, unspecified; F32.9 Major depressive disorder, single episode, unspecified; Z98.890 Other specified postprocedural states; Z91.09 Other allergy status, other than to drugs and biological substances; Z88.5 Allergy status to narcotic agent; Z88.8 Allergy status to other drugs, medicaments and biological substances; Z79.899 Other long term (current) drug therapy
CPT/HCPCS: 36415; 70491; 80053; 83605; 85025; 86308; 87070; 87880; 96361; 96365; 96375; 99283; A9270; J0696; J1885; J7040; Q9967; 99284

== ENCOUNTER → 2017-01-08 | Outpatient (CLI) | payer MEDICAID | LOC: MW.CHFP 15:53 | PROVIDERS: ATTEND Physician Assistant | DX: R19.7 Diarrhea, unspecified (principal) | CPT/HCPCS: 36415; 85025; 85652; 86308 ==

== ENCOUNTER → 2017-01-09 | Outpatient (CLI) | payer MEDICAID | END | disposition home or self-care (01) | LOC: MW.CHFP 11:27 | PROVIDERS: ATTEND Physician Assistant | DX: R19.7 Diarrhea, unspecified (principal) | CPT/HCPCS: 83630; 87046; 87324; 87899 ==

== ENCOUNTER → 2017-01-10 | Outpatient (CLI) | payer MEDICAID | LOC: MW.CHENT 16:09 | PROVIDERS: ATTEND Otolaryngology | DX: H69.80 Other specified disorders of Eustachian tube, unspecified ear (principal) | CPT/HCPCS: 36415; 80076; 86663; 86664; 86665 ==

== ENCOUNTER 2017-01-12 00:19 | Emergency (ER) | payer MEDICAID ==
[2017-01-12] MEDS ORDERED: Dexamethasone 10 MG/ML SDV IM ONE (03:03)
[2017-01-12] MEDS ORDERED: Ketorolac 60 MG/2 ML SDV IM ONE (03:05)
--- NOTE | 2017-01-12 03:09 | EDM.PDOC ---
ED HPI NEURO - General Stated Complaint: HEADACHE,ABDOMINAL,DIFFICULTY WITH VISION, SPEAKIN Time Seen by Provider: 01/12/17 00:20 Source of Information: Reports: Patient, Significant Other History Limitations: Reports: No limitations - History of Present Illness INITIAL COMMENTS - FREE TEXT/NARRATIVE: HISTORY AND PHYSICAL: History of present illness: [21-year-old female with a history of anxiety, pseudoseizures, migraine headaches now brought in by her significant other for evaluation of possible "seizure. "] He says he was on the phone with her when he "heard a thump." He then came home to find her complaining of nausea so he assumed she may have had a "seizure "and brought her to the emergency department for evaluation. On arrival patient was pretending that she couldn't talk and gesturing with her hands and fingers to that effect. She was also unable to open her eyes at all while she was wildly gesturing with her hands and demanding that all the lights in the room be completely turned off. Initially it was impossible to get a complete history from the patient because she was pretending she couldn't talk. On reevaluation and patient's speech ability "returned, " she claimed she had indicated that the reason she came is because she had a migraine. She states she took an Imitrex but only got subtotal relief prior to arrival. No vomiting in the emergency department. Denies fever or stiff neck. No actual vomiting. Patient and her significant other confirm the patient has pseudoseizures and that she has had multiple EEGs which were always negative. Review of systems: As per history of present illness and below otherwise all systems reviewed and negative. Past medical history: As per history of present illness and as reviewed below otherwise noncontributory. Surgical history: As per history of present illness and as reviewed below otherwise noncontributory. Social history: No reported history of drug or alcohol abuse. Family history: As per history of present illness and as reviewed below otherwise noncontributory. Physical exam: Initially per patient pretending she couldn't speak and after speaking normally patient pretending she couldn't open her eyes and after opening her eyes normally patient pretended the light was excruciating and on discharge she appeared asymptomatic HEENT: Atraumatic, normocephalic, pupils reactive, negative for conjunctival pallor or scleral icterus, mucous membranes moist, throat clear, neck supple, nontender, trachea midline. Lungs: Clear to auscultation, breath sounds equal bilaterally, chest nontender. Heart: S1S2, regular, negative for clicks, rubs, or JVD. Abdomen: Soft, nondistended, nontender. Negative for masses or hepatosplenomegaly. Negative for costovertebral tenderness. Pelvis: Stable nontender. Genitourinary: Deferred. Rectal: Deferred. Extremities: Atraumatic, negative for cords or calf pain. Neurovascular unremarkable. Neuro: Awake, alert, oriented. Cranial nerves II through XII unremarkable. Cerebellum unremarkable. Motor and sensory unremarkable throughout. Exam nonfocal. Diagnostics: [] Therapeutics: [ Decadron Toradol Im Impression: [Migraine headache anxiety feigning an illness Plan: [Patient improved after Toradol and Decadron IM. Spontaneous resolution of initial alleged inability to speak. Nonfocal neurologic exam remainder of exam is benign. No further workup or treatment indicated patient and significant other agree with outpatient followup and strict return precautions given] Definitive disposition and diagnosis as appropriate pending reevaluation and review of above. - Related Data Allergies/ADRs: Allergies Allergy/AdvReac Type Severity Reaction Status Date / Time coconut oil Allergy Anaphylactic Verified 01/12/17 00:26 Shock diphenhydramine Allergy Seizure Verified 01/12/17 00:26 [From Benadryl] metoclopramide [From Reglan] Allergy Agitation Verified 01/12/17 00:26 narcotics AdvReac Unknown Other Uncoded 01/12/17 02:59 Home Meds: Home Meds levETIRAcetam [Keppra] 2 tab PO BIDPC 06/29/16 [History] Albuterol Sulfate [Proair Respiclick] 1 puff INH ASDIRECTED 09/04/16 [History] Fluticasone/Salmeterol [Advair Diskus 500-50] 1 puff INH ASDIRECTED 09/04/16 [ History] EPINEPHrine [Epipen 2-Foster] 0.3 mg IJ ONETIME #0.3 ml 11/05/16 [Rx] SUMAtriptan [Imitrex] 25 mg PO ONETIME 11/20/16 [History] Cetirizine [ZyrTEC] 10 mg PO DAILY 12/14/16 [History] Melatonin 5 mg PO QPM 12/14/16 [History] PNV95/Ferrous Fumarate/FA [ Tablet] 1 each PO DAILY 12/14/16 [History] Vitamin B Complex 1 each PO DAILY 12/14/16 [History] Past Medical History HEENT History: Reports: None Cardiovascular History: Reports: None Other Cardiovascular History: abnormal heart beat "clicks" Respiratory History: Reports: Asthma Gastrointestinal History: Reports: None Genitourinary History: Reports: None 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 Musculoskeletal History: Reports: None Neurological History: Reports: Migraines, Seizure Psychiatric History: Reports: Anxiety, Depression Endocrine/Metabolic History: Reports: None Hematologic History: Reports: None Immunologic History: Reports: None Oncologic (Cancer) History: Reports: None Dermatologic History: Reports: None - Infectious Disease History Infectious Disease History: Reports: None - Past Surgical History Head Surgeries/Procedures: Reports: None HEENT Surgical History: Reports: Tonsillectomy Cardiovascular Surgical History: Reports: None Respiratory Surgical History: Reports: None GI Surgical History: Reports: None Female Surgical History: Reports: None Endocrine Surgical History: Reports: None Neurological Surgical History: Reports: None Musculoskeletal Surgical History: Reports: Other (see below) Other Musculoskeletal Surgeries/Procedures:: Cyst removed from left wrist Dermatological Surgical History: Reports: None Social & Family History - Family History Family Medical History: Noncontributory - Tobacco Use Smoking Status *Q: Never Smoker Second Hand Smoke Exposure: No - Caffeine Use Caffeine Use: Reports: None Caffeine Use Comment: no caffinee in 1 week - Recreational Drug Use Recreational Drug Use: No ED ROS GENERAL - Review of Systems Review Of Systems: See Below (History of present illness) ED EXAM, NEURO - Physical Exam Exam: See Below (History of present illness) Course - Vital Signs Last Recorded V/S: Last Vital Signs Temp 37.1 C 01/12/17 03:50 Pulse 77 01/12/17 03:50 Resp 18 01/12/17 03:50 BP 160/74 H 01/12/17 03:50 Pulse Ox 98 01/12/17 03:50 - Orders/Labs/Meds Labs: Laboratory Tests 01/12/17 Range/Units 03:30 Urine Opiates Screen NEGATIVE (NEGATIVE) Ur Oxycodone Screen NEGATIVE (NEGATIVE) Urine Methadone Screen NEGATIVE (NEGATIVE) Ur Barbiturates Screen NEGATIVE (NEGATIVE) Ur Phencyclidine Scrn NEGATIVE (NEGATIVE) Ur Amphetamine Screen NEGATIVE (NEGATIVE) U Methamphetamines Scrn NEGATIVE (NEGATIVE) U Benzodiazepines Scrn NEGATIVE (NEGATIVE) U Cocaine Metab Screen NEGATIVE (NEGATIVE) U Marijuana (THC) Screen NEGATIVE (NEGATIVE) Meds: Medications Discontinued Medications Generic Name Dose Route Start Last Admin Trade Name Freq PRN Reason Stop Dose Admin Dexamethasone 10 mg 01/12/17 03:03 01/12/17 03:14 Dexamethasone IM 01/12/17 03:04 10 mg ONETIME ONE Administration Ketorolac Tromethamine 60 mg 01/12/17 03:05 01/12/17 03:10 Toradol IM 01/12/17 03:06 60 mg ONETIME ONE Administration Departure - Departure Time of Disposition: 03:07 Disposition: Home, Self-Care 01 Condition: good Clinical Impression: Migraine headache, Nausea Instructions: Nausea, Adult, Migraine Headache, [id number] Referrals: PCP,None [Primary Care Provider] - Forms: ED Department Discharge Additional Instructions: We've given you anti-inflammatory medication as well as a steroid injection to 2 year migraine headache. Rest drink plenty of fluids and followup with your DrGerald tomorrow. Return immediately for new severe or worsening symptoms
[2017-01-12 04:00] VITALS: BP 160/74
== END 2017-01-12 03:56 | disposition home or self-care (01) ==
LOC: MW.ED 00:19
DX: G43.909 Migraine, unspecified, not intractable, without status migrainosus (principal); J45.909 Unspecified asthma, uncomplicated; F41.9 Anxiety disorder, unspecified; F32.9 Major depressive disorder, single episode, unspecified; Z88.6 Allergy status to analgesic agent; Z91.048 Other nonmedicinal substance allergy status; Z88.5 Allergy status to narcotic agent; Z98.890 Other specified postprocedural states
CPT/HCPCS: 80305; 99283; J1100; J1885

== ENCOUNTER → 2017-01-14 | Outpatient (CLI) | payer MEDICAID ==
--- NOTE | 2017-01-15 13:42 | US ---
EXAMINATION: Abdominal ultrasound HISTORY: Left upper quadrant pain COMPARISON: None TECHNIQUE: Grayscale and color Doppler images obtained of the abdomen. FINDINGS: The liver appears normal contour and echotexture. Gallbladder wall thickness is normal. No pericholecystic fluid. Right kidney measures 11.7 cm and the left kidney measures 10.6 cm pole-to-p ole without evidence of hydronephrosis. No abdominal ascites. The spleen appears normal. IMPRESSION: No acute findings identified.
== END ==
LOC: MW.US 10:11
PROVIDERS: ATTEND Physician Assistant
DX: R10.12 Left upper quadrant pain (principal); G89.29 Other chronic pain
CPT/HCPCS: 76705; 76705-26

== ENCOUNTER → 2017-01-27 | Outpatient (CLI) | payer MEDICAID ==
--- NOTE | 2017-01-27 16:23 | CR ---
EXAMINATION: Double contrast barium esophagram HISTORY: Other specified disorders COMPARISON: None TECHNIQUE: A standard double contrast barium esophagram was performed. FINDINGS: The patient swallowed barium without difficulty. The esophagus is normal in caliber withou t a filling defect or stricture. No ulceration or diverticulum. Minimal gastroesophageal reflux was noted. Lateral images obtained demonstrated mild pharyngeal penetration without tracheal aspiration. IMPRESSION: 1. Mild laryngeal penetration without tracheal aspiration. 2. Otherwise unremarkable esophagus.
== END ==
LOC: MW.DI 08:24
PROVIDERS: ATTEND Otolaryngology
DX: H69.80 Other specified disorders of Eustachian tube, unspecified ear (principal); J38.7 Other diseases of larynx; Z32.00 Encounter for pregnancy test, result unknown
CPT/HCPCS: 74220; 74220-26; 81025

== ENCOUNTER → 2017-01-28 | Outpatient (CLI) | payer MEDICAID | LOC: MW.NPGPWH 18:46 | PROVIDERS: ATTEND Physician Assistant | DX: R10.2 Pelvic and perineal pain (principal) | CPT/HCPCS: 87480; 87510; 87660 ==

== ENCOUNTER 2017-02-17 12:15 | Emergency (ER) | payer MEDICAID ==
--- NOTE | 2017-02-17 12:21 | EDM.PDOC ---
ED HPI GENERAL MEDICAL PROBLEM - General Stated Complaint: RAPID RESPONSE Time Seen by Provider: 02/17/17 12:20 Source of Information: Reports: Patient History Limitations: Reports: No Limitations - History of Present Illness INITIAL COMMENTS - FREE TEXT/NARRATIVE: History of present illness: []Patient hasn't allergic reaction to coconut and ate a brownie with coconut oil in it. She felt tingling in the back of her throat and immediately used her EpiPen. 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 On arrival patient had no respiratory distress or rash but felt swelling in her throat. Her voice was normal, and showed no signs of stridor. Patient felt her throat and skin was burning. She repeatedly stated she feels like she is going to "explode". Review of systems: As per history of present illness and below otherwise all systems reviewed and negative. Past medical history: As per history of present illness and as reviewed below otherwise noncontributory. Surgical history: As per history of present illness and as reviewed below otherwise noncontributory. Social history: No reported history of drug or alcohol abuse. Family history: As per history of present illness and as reviewed below otherwise noncontributory. Physical exam: General: Well developed, well nourished in NAD HEENT: Atraumatic, normocephalic, pupils reactive, negative for conjunctival pallor or scleral icterus, mucous membranes moist, throat clear, neck supple, nontender, trachea midline. Lungs: Clear to auscultation, breath sounds equal bilaterally, chest nontender. Heart: S1S2, regular, negative for clicks, rubs, or JVD. Abdomen: Soft, nondistended, nontender. Negative for masses or hepatosplenomegaly. Negative for costovertebral tenderness. Pelvis: Stable nontender. Genitourinary: Deferred. Rectal: Deferred. Extremities: Atraumatic, negative for cords or calf pain. Neurovascular unremarkable. Neuro: Awake, alert, oriented. Cranial nerves II through XII unremarkable. Cerebellum unremarkable. Motor and sensory unremarkable throughout. Exam nonfocal. Diagnostics: [] Therapeutics: []IV hydration, Atarax, Solu-Medrol and Pepcid was given the ED. (Patient is allergic to Benadryl) Impression: []Allergic reaction Plan: []Atarax as needed for allergic reaction, follow-up with primary care physician Definitive disposition and diagnosis as appropriate pending reevaluation and review of above. Chest Pain Score (Numeric/FACES): 6 - Related Data Allergies Allergy/AdvReac Type Severity Reaction Status Date / Time coconut oil Allergy Anaphylactic Verified 02/17/17 12:27 Shock diphenhydramine Allergy Seizure Verified 02/17/17 12:27 [From Benadryl] metoclopramide [From Reglan] Allergy Agitation Verified 02/17/17 12:27 narcotics AdvReac Unknown Other Uncoded 02/17/17 12:27 Home Meds: Home Meds levETIRAcetam [Keppra] 2 tab PO BIDPC 06/29/16 [History] Albuterol Sulfate [Proair Respiclick] 1 puff INH ASDIRECTED 09/04/16 [History] Fluticasone/Salmeterol [Advair Diskus 500-50] 1 puff INH ASDIRECTED 09/04/16 [ History] EPINEPHrine [Epipen 2-Foster] 0.3 mg IJ ONETIME #0.3 ml 11/05/16 [Rx] SUMAtriptan [Imitrex] 25 mg PO ONETIME 11/20/16 [History] Cetirizine [ZyrTEC] 10 mg PO DAILY 12/14/16 [History] Melatonin 5 mg PO QPM 12/14/16 [History] PNV95/Ferrous Fumarate/FA [ Tablet] 1 each PO DAILY 12/14/16 [History] Vitamin B Complex 1 each PO DAILY 12/14/16 [History] hydrOXYzine HCl [Atarax] 25 mg PO Q8HR PRN #12 tablet 02/17/17 [Rx] Past Medical History HEENT History: Reports: None Cardiovascular History: Reports: None Other Cardiovascular History: abnormal heart beat "clicks" Respiratory History: Reports: Asthma Gastrointestinal History: Reports: None Genitourinary History: Reports: None 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 Musculoskeletal History: Reports: None Neurological History: Reports: Migraines, Seizure Psychiatric History: Reports: Anxiety, Depression Endocrine/Metabolic History: Reports: None Hematologic History: Reports: None Immunologic History: Reports: None Oncologic (Cancer) History: Reports: None Dermatologic History: Reports: None - Infectious Disease History Infectious Disease History: Reports: None - Past Surgical History Musculoskeletal Surgical History: Reports: Other (See Below) Social & Family History - Family History Family Medical History: Noncontributory - Tobacco Use Smoking Status *Q: Never Smoker Second Hand Smoke Exposure: No - Caffeine Use Caffeine Use: Reports: None Caffeine Use Comment: no caffinee in 1 week - Recreational Drug Use Recreational Drug Use: No ED ROS ALLERGIC REACTION - Review of Systems Review Of Systems: See Below ED EXAM GENERAL NO PERIP PULSE - Physical Exam Exam: See Below (CHPI) Course - Vital Signs Last Recorded V/S: Last Vital Signs Temp 36.4 C 02/17/17 12:19 Pulse 116 H 02/17/17 12:19 Resp 18 02/17/17 12:19 BP 149/96 H 02/17/17 12:19 Pulse Ox 97 02/17/17 12:19 - Orders/Labs/Meds Orders: Active Orders 24 hr Category Date Time Status Saline Lock Insert [OM.PC] Stat Oth 02/17/17 12:22 Ordered Meds: Medications Discontinued Medications Generic Name Dose Route Start Last Admin Trade Name Freq PRN Reason Stop Dose Admin Famotidine 20 mg 02/17/17 12:23 02/17/17 12:43 Pepcid IVPUSH 02/17/17 12:24 20 mg ONETIME ONE Administration Hydroxyzine HCl 25 mg 02/17/17 12:47 Atarax PO 02/17/17 12:48 ONETIME ONE Sodium Chloride 1,000 mls @ 999 mls/hr 02/17/17 12:22 02/17/17 12:30 Normal Saline IV 02/17/17 13:22 999 mls/hr .Bolus ONE Administration Methylprednisolone Sodium Succinate 125 mg 02/17/17 12:22 02/17/17 12:30 Solu-Medrol IVPUSH 02/17/17 12:23 125 mg ONETIME ONE Administration Departure - Departure Time of Disposition: 13:26 Disposition: Home, Self-Care 01 Condition: good Clinical Impression: Allergic reaction Qualifiers: Encounter type: initial encounter Qualified Code(s): T78.40XA - Allergy, unspecified, initial encounter - Discharge Information Prescriptions: hydrOXYzine HCl [Atarax] 25 mg PO Q8HR PRN #12 tablet PRN Reason: Allergies Additional Instructions: The following information is given to patients seen in the emergency department who are being discharged to home. This information is to outline your options for follow-up care. We provide all patients seen in our emergency department with a follow-up referral. The need for follow-up, as well as the timing and circumstances, are variable depending upon the specifics of your emergency department visit. If you don't have a primary care physician on staff, we will provide you with a referral. We always advise you to contact your personal physician following an emergency department visit to inform them of the circumstance of the visit and for follow-up with them and/or the need for any referrals to a consulting specialist. The emergency department will also refer you to a specialist when appropriate. This referral assures that you have the opportunity for follow-up care with a specialist. All of these measure are taken in an effort to provide you with optimal care, which includes your follow-up. Under all circumstances we always encourage you to contact your private physician who remains a resource for coordinating your care. When calling for follow-up care, please make the office aware that this follow-up is from your recent emergency room visit. If for any reason you are refused follow-up, please contact the [facility] Emergency Department at and asked to speak to the emergency department charge nurse. Atarax for allergic reaction, follow-up with her primary care physician [facility] [address] [place] [id number] - My Orders Last 24 Hours: My Active Orders 02/17/17 12:22 Saline Lock Insert [OM.PC] Stat - Assessment/Plan Last 24 Hours: My Active Orders 02/17/17 12:22 Saline Lock Insert [OM.PC] Stat
[2017-02-17] MEDS ORDERED: Sodium Chloride 0.9% 1,000 ML IV ONE (12:22)
[2017-02-17] MEDS ORDERED: methylPREDNISolone Sodium Succinate 125 MG/2 ML SDV IVPUSH ONE (12:22)
[2017-02-17] MEDS ORDERED: Famotidine 20 MG/2 ML SDV IVPUSH ONE (12:23)
[2017-02-17] MEDS ORDERED: hydrOXYzine HCl 25 MG Tab PO ONE (12:47)
[2017-02-17 14:20] VITALS: BP 170/78
== END 2017-02-17 13:53 | disposition home or self-care (01) ==
LOC: MW.ED 12:15
DX: T78.1XXA Other adverse food reactions, not elsewhere classified, initial encounter (principal); R20.2 Paresthesia of skin; J45.909 Unspecified asthma, uncomplicated; F41.9 Anxiety disorder, unspecified; F32.9 Major depressive disorder, single episode, unspecified; G43.909 Migraine, unspecified, not intractable, without status migrainosus; Z88.8 Allergy status to other drugs, medicaments and biological substances; Z79.899 Other long term (current) drug therapy; Z88.5 Allergy status to narcotic agent; Z91.018 Allergy to other foods
CPT/HCPCS: 96361; 96374; 96375; 99283; A9270; J2930; J7040; 99284

== ENCOUNTER 2017-04-12 22:11 | Emergency (ER) | payer BC, SELFPAY ==
[2017-04-12] MEDS ORDERED: Sodium Chloride 0.9% 2.5 ML Syringe FLUSH PRN (22:41)
[2017-04-12] MEDS ORDERED: Sodium Chloride 0.9% 10 ML Syringe FLUSH PRN (22:41)
--- NOTE | 2017-04-12 22:43 | EDM.PDOC ---
ED HPI GENERAL MEDICAL PROBLEM - General Chief Complaint: Abdominal Pain Stated Complaint: ABDOMINAL PAIN Time Seen by Provider: 04/12/17 22:40 Source of Information: Reports: Patient History Limitations: Reports: No Limitations - History of Present Illness INITIAL COMMENTS - FREE TEXT/NARRATIVE: HISTORY AND PHYSICAL: History of present illness: [21-year-old female with no prior abdominal history now complaining of right upper quadrant pain under her rib margin. Patient states she has a strong family history of gallstones. This evening she had sudden onset of severe colicky pain under her right rib margin. No fevers chills sweats or shaking chills. Nausea no diarrhea. No prior workup for gallbladder disease. Review of systems: As per history of present illness and below otherwise all systems reviewed and negative. Past medical history: As per history of present illness and as reviewed below otherwise noncontributory. Surgical history: As per history of present illness and as reviewed below otherwise noncontributory. Social history: No reported history of drug or alcohol abuse. Family history: As per history of present illness and as reviewed below otherwise noncontributory. Physical exam: Well appearing patient no acute distress alert and communicative mild right upper quadrant tenderness no guarding or rebound normal bowel sounds HEENT: Atraumatic, normocephalic, pupils reactive, negative for conjunctival pallor or scleral icterus, mucous membranes moist, throat clear, neck supple, nontender, trachea midline. Lungs: Clear to auscultation, breath sounds equal bilaterally, chest nontender. Heart: S1S2, regular, negative for clicks, rubs, or JVD. Abdomen: Soft, nondistended, mild right upper quadrant tenderness Negative for masses or hepatosplenomegaly. Negative for costovertebral tenderness. Pelvis: Stable nontender. Genitourinary: Deferred. Rectal: Deferred. Extremities: Atraumatic, negative for cords or calf pain. Neurovascular unremarkable. Neuro: Awake, alert, oriented. Exam nonfocal. Diagnostics: [Ultrasound unremarkable. Labs benign] Therapeutics: [] Impression: [Abdominal pain] Plan: [Results unremarkable. Patient aware of possibility of occult gallbladder disease importance of follow-up with PCP and surgery as needed. No further workup or treatment indicated. She is well-appearing able to ambulate without difficulty. Vital signs unremarkable prior to discharge. Patient agrees with outpatient follow-up and strict return precautions given] Definitive disposition and diagnosis as appropriate pending reevaluation and review of above. Right Upper Abdomen Pain Score (Numeric/FACES): 6 - Related Data Allergies Allergy/AdvReac Type Severity Reaction Status Date / Time coconut oil Allergy Anaphylactic Verified 04/12/17 22:44 Shock diphenhydramine Allergy Seizure Verified 04/12/17 22:44 [From Benadryl] metoclopramide [From Reglan] Allergy Agitation Verified 04/12/17 22:44 narcotics AdvReac Unknown Other Uncoded 04/12/17 22:44 Home Meds: Home Meds Albuterol Sulfate [Proair Respiclick] 1 puff INH ASDIRECTED 09/04/16 [History] SUMAtriptan [Imitrex] 25 mg PO DAILY PRN 11/20/16 [History] Cetirizine [ZyrTEC] 10 mg PO DAILY 12/14/16 [History] Melatonin 5 mg PO QPM 12/14/16 [History] PNV95/Ferrous Fumarate/FA [ Tablet] 1 each PO DAILY 12/14/16 [History] Vitamin B Complex 1 each PO DAILY 12/14/16 [History] EPINEPHrine [Epipen 2-Foster] 0.3 mg IJ DAILY PRN 04/12/17 [History] Ondansetron [Zofran ODT] 4 mg SL Q4H PRN #16 tab.dis 04/13/17 [Rx] Past Medical History HEENT History: Reports: None Cardiovascular History: Reports: None Other Cardiovascular History: abnormal heart beat "clicks" Respiratory History: Reports: Asthma Gastrointestinal History: Reports: None Genitourinary History: Reports: None SUPPORT ANALYST History: Reports: None Musculoskeletal History: Reports: None Neurological History: Reports: Migraines, Seizure Psychiatric History: Reports: Anxiety, Depression Endocrine/Metabolic History: Reports: None Hematologic History: Reports: None Immunologic History: Reports: None Oncologic (Cancer) History: Reports: None Dermatologic History: Reports: None - Infectious Disease History Infectious Disease History: Reports: None - Past Surgical History Musculoskeletal Surgical History: Reports: Other (See Below) Social & Family History - Family History Family Medical History: Noncontributory - Tobacco Use Smoking Status *Q: Never Smoker Second Hand Smoke Exposure: No - Caffeine Use Caffeine Use: Reports: None Caffeine Use Comment: no caffinee in 1 week - Recreational Drug Use Recreational Drug Use: No ED ROS GENERAL - Review of Systems Review Of Systems: See Below (History of present illness) ED EXAM, GI/ABD - Physical Exam Exam: See Below (History of present illness) Course - Vital Signs Last Recorded V/S: Last Vital Signs Temp 36.1 C 04/13/17 02:25 Pulse 84 04/13/17 02:25 Resp 16 04/13/17 02:25 BP 120/90 04/13/17 02:25 Pulse Ox 98 04/13/17 02:25 - Orders/Labs/Meds Orders: Active Orders 24 hr Category Date Time Status Abdomen Comp [US] Stat Exams 04/12/17 23:33 Taken Peripheral IV Insertion Adult [OM.PC] Stat Oth 04/12/17 22:41 Ordered Labs: Laboratory Tests 04/12/17 04/12/17 04/12/17 Range/Units 22:49 22:49 23:10 WBC 9.54 (4.0-11.0) K/uL RBC 4.81 (4.30-5.90) M/uL Hgb 13.5 (12.0-16.0) g/dL Hct 39.4 (36.0-46.0) % MCV 81.9 (80.0-98.0) fL MCH 28.1 (27.0-32.0) pg MCHC 34.3 (31.0-37.0) g/dL RDW Std Deviation 36.3 (28.0-62.0) fl RDW Coeff of Roger 12 (11.0-15.0) % Plt Count 245 (150-400) K/uL MPV 10.40 (7.40-12.00) fL Neut % (Auto) 57.0 (48.0-80.0) % Lymph % (Auto) 31.0 (16.0-40.0) % [place] % (Auto) 9.5 (0.0-15.0) % Eos % (Auto) 2.1 (0.0-7.0) % Baso % (Auto) 0.4 (0.0-1.5) % Neut # (Auto) 5.4 (1.4-5.7) K/uL Lymph # (Auto) 3.0 H (0.6-2.4) K/uL [place] # (Auto) 0.9 H (0.0-0.8) K/uL Eos # (Auto) 0.2 (0.0-0.7) K/uL Baso # (Auto) 0.0 (0.0-0.1) K/uL Nucleated RBC % 0.0 /100WBC Nucleated RBCs # 0 K/uL Sodium (136-146) mmol/L Potassium (3.5-5.1) mmol/L Chloride (98-110) mmol/L Carbon Dioxide (21-31) mmol/L BUN (6.0-23.0) mg/dL Creatinine (0.6-1.5) mg/dL Est Cr Clr Drug Dosing mL/min Estimated GFR (MDRD) ml/min Glucose (60-110) mg/dL Calcium (8.8-10.8) mg/dL Total Bilirubin (0.1-1.5) mg/dL AST (5-40) IU/L ALT (8-54) IU/L Alkaline Phosphatase (40-150) Total Protein (6.0-8.0) g/dL Albumin (3.5-5.0) g/dL Globulin (2.0-3.5) g/dL Albumin/Globulin Ratio (1.3-2.8) Lipase (7-80) U/L Urine Color YELLOW Urine Appearance CLEAR Urine pH 7.5 (5.0-8.0) Ur Specific [place] 1.015 (1.001-1.035) Urine Protein NEGATIVE (NEGATIVE) mg/dL Urine Glucose (UA) NEGATIVE (NEGATIVE) mg/dL Urine Ketones NEGATIVE (NEGATIVE) mg/dL Urine Occult Blood SMALL H (NEGATIVE) Urine Nitrite NEGATIVE (NEGATIVE) Urine Bilirubin NEGATIVE (NEGATIVE) Urine Urobilinogen 0.2 (<2.0) EU/dL Ur Leukocyte Esterase NEGATIVE (NEGATIVE) Urine RBC 0-5 (0-2/HPF) Urine WBC 0-2 (0-5/HPF) Ur Epithelial Cells FEW (NONE-FEW) Urine Bacteria FEW (NEGATIVE) Urine Mucus LIGHT (NONE-MOD) Urine HCG, Qual NEGATIVE (NEGATIVE) 04/12/17 Range/Units 23:10 WBC (4.0-11.0) K/uL RBC (4.30-5.90) M/uL Hgb (12.0-16.0) g/dL Hct (36.0-46.0) % MCV (80.0-98.0) fL MCH (27.0-32.0) pg MCHC (31.0-37.0) g/dL RDW Std Deviation (28.0-62.0) fl RDW Coeff of Roger (11.0-15.0) % Plt Count (150-400) K/uL MPV (7.40-12.00) fL Neut % (Auto) (48.0-80.0) % Lymph % (Auto) (16.0-40.0) % [place] % (Auto) (0.0-15.0) % Eos % (Auto) (0.0-7.0) % Baso % (Auto) (0.0-1.5) % Neut # (Auto) (1.4-5.7) K/uL Lymph # (Auto) (0.6-2.4) K/uL [place] # (Auto) (0.0-0.8) K/uL Eos # (Auto) (0.0-0.7) K/uL Baso # (Auto) (0.0-0.1) K/uL Nucleated RBC % /100WBC Nucleated RBCs # K/uL Sodium 140 (136-146) mmol/L Potassium 3.9 (3.5-5.1) mmol/L Chloride 107 (98-110) mmol/L Carbon Dioxide 24 (21-31) mmol/L BUN 13 (6.0-23.0) mg/dL Creatinine 0.8 (0.6-1.5) mg/dL Est Cr Clr Drug Dosing 92.79 mL/min Estimated GFR (MDRD) > 60.0 ml/min Glucose 92 (60-110) mg/dL Calcium 9.4 (8.8-10.8) mg/dL Total Bilirubin 0.7 (0.1-1.5) mg/dL AST 15 (5-40) IU/L ALT 11 (8-54) IU/L Alkaline Phosphatase 68 (40-150) Total Protein 7.5 (6.0-8.0) g/dL Albumin 4.0 (3.5-5.0) g/dL Globulin 3.5 (2.0-3.5) g/dL Albumin/Globulin Ratio 1.1 L (1.3-2.8) Lipase 18 (7-80) U/L Urine Color Urine Appearance Urine pH (5.0-8.0) Ur Specific [place] (1.001-1.035) Urine Protein (NEGATIVE) mg/dL Urine Glucose (UA) (NEGATIVE) mg/dL Urine Ketones (NEGATIVE) mg/dL Urine Occult Blood (NEGATIVE) Urine Nitrite (NEGATIVE) Urine Bilirubin (NEGATIVE) Urine Urobilinogen (<2.0) EU/dL Ur Leukocyte Esterase (NEGATIVE) Urine RBC (0-2/HPF) Urine WBC (0-5/HPF) Ur Epithelial Cells (NONE-FEW) Urine Bacteria (NEGATIVE) Urine Mucus (NONE-MOD) Urine HCG, Qual (NEGATIVE) Meds: Medications Discontinued Medications Generic Name Dose Route Start Last Admin Trade Name Freq PRN Reason Stop Dose Admin Sodium Chloride 1,000 mls @ 999 mls/hr 04/12/17 23:19 04/13/17 00:00 Normal Saline IV 04/13/17 00:19 999 mls/hr .Bolus ONE Administration Ketorolac Tromethamine Confirm 04/12/17 23:40 04/13/17 00:51 Toradol Administered 04/12/17 23:41 Not Given Dose 30 mg .ROUTE .STK-MED ONE Ketorolac Tromethamine 30 mg 04/12/17 23:30 04/12/17 23:30 Toradol IVPUSH 04/12/17 23:31 30 mg ONETIME ONE Administration Ondansetron HCl Confirm 04/12/17 23:38 04/13/17 00:51 Zofran Administered 04/12/17 23:39 Not Given Dose 4 mg .ROUTE .STK-MED ONE Ondansetron HCl 4 mg 04/12/17 23:18 04/13/17 00:53 Zofran IVPUSH 04/12/17 23:19 4 mg ONETIME ONE Administration Sodium Chloride 10 ml 04/12/17 22:41 04/13/17 00:53 Saline Flush FLUSH 10 ml ASDIRECTED PRN Administration Keep Vein Open Sodium Chloride 2.5 ml 04/12/17 22:41 04/13/17 00:53 Saline Flush FLUSH 2.5 ml ASDIRECTED PRN Administration Keep Vein Open Departure - Departure Time of Disposition: 02:09 Disposition: Home, Self-Care 01 Condition: Good Clinical Impression: Abdominal pain - Discharge Information Prescriptions: Ondansetron [Zofran ODT] 4 mg SL Q4H PRN #16 tab.dis PRN Reason: Nausea Instructions: Abdominal Pain, Adult, [id number] Referrals: PCP,None [Primary Care Provider] - Forms: ED Department Discharge Additional Instructions: Your symptoms of right upper quadrant abdominal pain this evening were suggestive of the possibility of a gallbladder problem. However, your ultrasound was negative in your labs were unremarkable with no abnormalities as well. He did not have any evidence of a surgical emergency. It is still possible that the source of your discomfort could be her gallbladder. It is important follow-up with your DrGerald as an outpatient for reevaluation and referral for further testing and possibly referral for outpatient evaluation by a surgeon as needed. - My Orders Last 24 Hours: My Active Orders 04/12/17 22:41 Peripheral IV Insertion Adult [OM.PC] Stat 04/12/17 23:33 Abdomen Comp [US] Stat - Assessment/Plan Last 24 Hours: My Active Orders 04/12/17 22:41 Peripheral IV Insertion Adult [OM.PC] Stat 04/12/17 23:33 Abdomen Comp [US] Stat
[2017-04-12] MEDS ORDERED: Ondansetron 4 MG/2 ML SDV IVPUSH ONE (23:18)
[2017-04-12] MEDS ORDERED: Sodium Chloride 0.9% 1,000 ML IV ONE (23:19)
[2017-04-12] MEDS ORDERED: Ketorolac 30 MG/ML SDV IVPUSH ONE (23:30)
[2017-04-12 23:38] LABS: CHLORIDE,CL 107 mmol/L (98-110); SODIUM,NA 140 mmol/L (136-146)
[2017-04-12] MEDS ORDERED: Ondansetron 4 MG/2 ML SDV ONE (23:38)
[2017-04-12] MEDS ORDERED: Ketorolac 30 MG/ML SDV ONE (23:40)
[2017-04-13 02:28] VITALS: BP 120/90
--- NOTE | 2017-04-14 14:12 | US ---
EXAM DATE: 04/12/17 PATIENT'S AGE: 21 Patient: EMILY UGALDE Facility: [place], [place] Site . Site : 1996 Study: US Abdomen [id number] 12:52:33 AM Ordering Physician: Kayode Tate Final Report: INDICATION: Abdominal pain TECHNIQUE: Ultrasound abdomen limited. Sonographic images of the right upper quadrant were obtained using staples-scale and color Doppler images. COMPARISON: January 14, 2017. FINDINGS: Liver: Normal in size. Increased echotexture throughout the liver. No masses. No intrahepatic biliary dilatation. Gallbladder: The gallbladder is contracted. No shadowing stones identified. Sonographic Ortiz`s sign is positive. Normal wall thickness. No pericholecystic fluid. Common bile duct: 5 mm. Pancreas: Normal. Spleen: The spleen measures 13.5 cm in greatest length. Right kidney: 10.8 cm in length Normal echotexture and cortex. No masses, stones , or hydronephrosis. Left kidney: 10.9 cm in length. Normal echotexture and cortex. No masses, stones , or hydronephrosis. Vasculature: Proximal abdominal aorta and IVC are normal. IMPRESSION: Contracted gallbladder. No gallstones. Although Ortiz`s sign is positive, there is no additional ultrasound evidence for acute cholecystitis. Mild splenomegaly. Hepatic steatosis. Dictated by Mena Perez MD @ Apr 13 2017 1:13AM (Electronic Signature) Report Signed by Proxy. BRIANNE
== END 2017-04-13 02:25 | disposition home or self-care (01) ==
LOC: MW.ED 22:11
DX: R10.11 Right upper quadrant pain (principal); J45.909 Unspecified asthma, uncomplicated; Z88.8 Allergy status to other drugs, medicaments and biological substances; Z79.899 Other long term (current) drug therapy
CPT/HCPCS: 76700; 80053; 81001; 81025; 83690; 85025; 96361; 96374; 96375; 99284; J1885; J2405; J7040

== ENCOUNTER 2017-04-14 16:54 | Emergency (ER) | payer BC, SELFPAY ==
[2017-04-14] MEDS ORDERED: Ketorolac 30 MG/ML SDV IVPUSH ONE (17:15)
[2017-04-14] MEDS ORDERED: Sodium Chloride 0.9% 1,000 ML IV ONE (17:15)
[2017-04-14 17:17] VITALS: BP 144/72
[2017-04-14] MEDS ORDERED: Ketorolac 60 MG/2 ML SDV IM ONE (17:21)
--- NOTE | 2017-04-14 17:51 | EDM.PDOC ---
ED HPI GENERAL MEDICAL PROBLEM - General Chief Complaint: Abdominal Pain Stated Complaint: PT HAS STOMACH PAINS Time Seen by Provider: 04/14/17 17:00 Source of Information: Reports: Patient History Limitations: Reports: No Limitations - History of Present Illness INITIAL COMMENTS - FREE TEXT/NARRATIVE: History of present illness: 21-year-old female presenting with complaints of abdominal pain. Patient feels that it is her gallbladder which she had been seen previously for. Patient had an ultrasound of her gallbladder was no definitive diagnosis of stones, and she is instructed to follow up outpatient for further evaluation and treatment when necessary. Patient indicated she in fact has an appointment with [facility] davidson all in the morning. Review of systems: As per history of present illness and below otherwise all systems reviewed and negative. Past medical history: As per history of present illness and as reviewed below otherwise noncontributory. Surgical history: As per history of present illness and as reviewed below otherwise noncontributory. Social history: No reported history of drug or alcohol abuse. Family history: As per history of present illness and as reviewed below otherwise noncontributory. Physical exam: HEENT: Atraumatic, normocephalic, pupils reactive, negative for conjunctival pallor or scleral icterus, mucous membranes moist, throat clear, neck supple, nontender, trachea midline. Lungs: Clear to auscultation, breath sounds equal bilaterally, chest nontender. Heart: S1S2, regular, negative for clicks, rubs, or JVD. Abdomen: Soft, nondistended, nontender. Negative for masses or hepatosplenomegaly. Negative for costovertebral tenderness. Pelvis: Stable nontender. Genitourinary: Deferred. Rectal: Deferred. Extremities: Atraumatic, negative for cords or calf pain. Neurovascular unremarkable. Neuro: Awake, alert, oriented. Cranial nerves II through XII unremarkable. Cerebellum unremarkable. Motor and sensory unremarkable throughout. Exam nonfocal. Global assessment is benign save subjective complaint as noted in the history of present illness Diagnostics: [CBC/CMP] Therapeutics: [Oral IM] Impression: [Abdominal pain] Plan: [Follow-up with La N[facility] tomorrow] Definitive disposition and diagnosis as appropriate pending reevaluation and review of above. Right Upper Abdominal Pain Score (Numeric/FACES): 5 - Related Data Allergies Allergy/AdvReac Type Severity Reaction Status Date / Time coconut oil Allergy Anaphylactic Verified 04/14/17 17:15 Shock diphenhydramine Allergy Seizure Verified 04/14/17 17:15 [From Benadryl] metoclopramide [From Reglan] Allergy Agitation Verified 04/14/17 17:15 narcotics AdvReac Unknown Other Uncoded 04/14/17 17:15 Home Meds: Home Meds Albuterol Sulfate [Proair Respiclick] 1 puff INH ASDIRECTED 09/04/16 [History] SUMAtriptan [Imitrex] 25 mg PO DAILY PRN 11/20/16 [History] Cetirizine [ZyrTEC] 10 mg PO DAILY 12/14/16 [History] Melatonin 5 mg PO QPM 12/14/16 [History] PNV95/Ferrous Fumarate/FA [ Tablet] 1 each PO DAILY 12/14/16 [History] Vitamin B Complex 1 each PO DAILY 12/14/16 [History] EPINEPHrine [Epipen 2-Foster] 0.3 mg IJ DAILY PRN 04/12/17 [History] Ondansetron [Zofran ODT] 4 mg SL Q4H PRN #16 tab.dis 04/13/17 [Rx] Past Medical History HEENT History: Reports: None Cardiovascular History: Reports: None Other Cardiovascular History: abnormal heart beat "clicks" Respiratory History: Reports: Asthma Gastrointestinal History: Reports: None Genitourinary History: Reports: None PLASTIC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 Other OB/BYN History: miscarriage Musculoskeletal History: Reports: None Neurological History: Reports: Migraines, Seizure Other Neuro History: "small stroke that left no evidence but I had to go through physical therapy". Psychiatric History: Reports: Anxiety, Depression Endocrine/Metabolic History: Reports: None Hematologic History: Reports: None Immunologic History: Reports: None Oncologic (Cancer) History: Reports: None Dermatologic History: Reports: None - Infectious Disease History Infectious Disease History: Reports: Chicken Pox, Influenza - Past Surgical History Head Surgeries/Procedures: Reports: None Musculoskeletal Surgical History: Reports: Other (See Below) Social & Family History - Family History Family Medical History: Noncontributory - Tobacco Use Smoking Status *Q: Never Smoker Second Hand Smoke Exposure: No - Caffeine Use Caffeine Use: Reports: None Caffeine Use Comment: no caffinee in 1 week - Recreational Drug Use Recreational Drug Use: No ED ROS GENERAL - Review of Systems Review Of Systems: See Below (History of present illness) ED EXAM, GI/ABD - Physical Exam Exam: See Below (History of present illness) Course - Vital Signs Last Recorded V/S: Last Vital Signs Temp 36.4 C 04/14/17 17:15 Pulse 70 04/14/17 17:15 Resp 18 04/14/17 17:15 BP 144/72 H 04/14/17 17:15 Pulse Ox 98 04/14/17 17:15 - Orders/Labs/Meds Orders: Active Orders 24 hr Category Date Time Status AMYLASE [CHEM] Stat Lab 04/14/17 17:15 Ordered COMPREHENSIVE METABOLIC PN,CMP [CHEM] Stat Lab 04/14/17 17:15 Ordered LIPASE [CHEM] Stat Lab 04/14/17 17:15 Ordered Labs: Laboratory Tests 04/14/17 Range/Units 17:26 WBC 7.86 (4.0-11.0) K/uL RBC 4.62 (4.30-5.90) M/uL Hgb 12.9 (12.0-16.0) g/dL Hct 38.5 (36.0-46.0) % MCV 83.3 (80.0-98.0) fL MCH 27.9 (27.0-32.0) pg MCHC 33.5 (31.0-37.0) g/dL RDW Std Deviation 37.6 (28.0-62.0) fl RDW Coeff of Roger 12 (11.0-15.0) % Plt Count 226 (150-400) K/uL MPV 10.20 (7.40-12.00) fL Neut % (Auto) 65.0 (48.0-80.0) % Lymph % (Auto) 27.6 (16.0-40.0) % [place] % (Auto) 6.1 (0.0-15.0) % Eos % (Auto) 1.0 (0.0-7.0) % Baso % (Auto) 0.3 (0.0-1.5) % Neut # (Auto) 5.1 (1.4-5.7) K/uL Lymph # (Auto) 2.2 (0.6-2.4) K/uL [place] # (Auto) 0.5 (0.0-0.8) K/uL Eos # (Auto) 0.1 (0.0-0.7) K/uL Baso # (Auto) 0.0 (0.0-0.1) K/uL Nucleated RBC % 0.0 /100WBC Nucleated RBCs # 0 K/uL Meds: Medications Discontinued Medications Generic Name Dose Route Start Last Admin Trade Name Mary PRN Reason Stop Dose Admin Sodium Chloride 1,000 mls @ 999 mls/hr 04/14/17 17:15 04/14/17 17:31 Normal Saline IV 04/14/17 18:15 Not Given STAT ONE Ketorolac Tromethamine 30 mg 04/14/17 17:15 04/14/17 17:31 Toradol IVPUSH 04/14/17 17:16 Not Given ONETIME ONE Ketorolac Tromethamine 60 mg 04/14/17 17:21 04/14/17 17:31 Toradol IM 04/14/17 17:22 60 mg ONETIME ONE Administration Departure - Departure Time of Disposition: 17:50 Disposition: Home, Self-Care 01 Condition: Good Clinical Impression: Abdominal pain - Discharge Information Instructions: Abdominal Pain, Adult, [id number] Forms: ED Department Discharge Additional Instructions: The following information is given to patients seen in the emergency department who are being discharged to home. This information is to outline your options for follow-up care. We provide all patients seen in our emergency department with a follow-up referral. The need for follow-up, as well as the timing and circumstances, are variable depending upon the specifics of your emergency department visit. If you don't have a primary care physician on staff, we will provide you with a referral. We always advise you to contact your personal physician following an emergency department visit to inform them of the circumstance of the visit and for follow-up with them and/or the need for any referrals to a consulting specialist. The emergency department will also refer you to a specialist when appropriate. This referral assures that you have the opportunity for follow-up care with a specialist. All of these measure are taken in an effort to provide you with optimal care, which includes your follow-up. Under all circumstances we always encourage you to contact your private physician who remains a resource for coordinating your care. When calling for follow-up care, please make the office aware that this follow-up is from your recent emergency room visit. If for any reason you are refused follow-up, please contact the [facility] Emergency Department at and asked to speak to the emergency department charge nurse. There was no alteration in your labs that were concerning that would imply that we are having a fulminant problem with your gallbladder at this time. Does not rule out sludgy bile that could be somewhat uncomfortable which is why it is imperative that you follow-up outpatient and get a referral for the HIDA scan as previously discussed. Follow-up with La Nena Dent as discussed in the a.m. Return to ED as needed as discussed - My Orders Last 24 Hours: My Active Orders 04/14/17 17:15 AMYLASE [CHEM] Stat COMPREHENSIVE METABOLIC PN,CMP [CHEM] Stat LIPASE [CHEM] Stat - Assessment/Plan Last 24 Hours: My Active Orders 04/14/17 17:15 AMYLASE [CHEM] Stat COMPREHENSIVE METABOLIC PN,CMP [CHEM] Stat LIPASE [CHEM] Stat
[2017-04-14 17:55] LABS: CHLORIDE,CL 108 mmol/L (98-110); SODIUM,NA 143 mmol/L (136-146)
== END 2017-04-14 18:10 | disposition home or self-care (01) ==
LOC: MW.ED 16:54
DX: R10.11 Right upper quadrant pain (principal); J45.909 Unspecified asthma, uncomplicated; F41.9 Anxiety disorder, unspecified; F32.9 Major depressive disorder, single episode, unspecified; Z88.8 Allergy status to other drugs, medicaments and biological substances; Z79.899 Other long term (current) drug therapy
CPT/HCPCS: 36415; 80053; 82150; 83690; 85025; 96372; 99284; J1885

== ENCOUNTER 2017-04-24 09:08 | Observation (INO) | payer BC, SELFPAY ==
[~2017-04-24 09:08] MED LIST: Bupivacaine 0.25%/EPINEPHrine 1:200,000 10 ML SDV ONE; Dexamethasone 4 MG/ML 5 ML MDV ONE; Midazolam 1 MG/ML 2 ML SDV ONE; Neostigmine Methylsulfate 1 MG/ML 5 ML Syringe ONE; Octyl 2-Cyanoacrylate 1 Tube ONE; Ondansetron 4 MG/2 ML SDV ONE; Propofol 200 MG/20 ML SDV ONE; Rocuronium 10 MG/ML 10 ML Syringe ONE; fentaNYL 100 MCG/2 ML SDV ONE
[2017-04-24] MEDS ORDERED: Lactated Ringers 1,000 ML IV SCH (09:45)
[2017-04-24] MEDS ORDERED: Scopolamine 1.5 MG Transdermal Patch TOP ONE (09:51)
[2017-04-24] MEDS ORDERED: Albuterol 6.7 GM Inhaler INH ONE (10:38)
[2017-04-24] MEDS ORDERED: HYDROmorphone 2 MG/ML Syringe ONE (10:39)
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
[2017-04-24] MEDS ORDERED: Ketorolac 30 MG/ML SDV ONE (11:16)
[2017-04-24] MEDS ORDERED: ceFAZolin 1 GM Vial ONE (11:17)
[2017-04-24] MEDS: fentaNYL 100 MCG/2 ML SDV IVPUSH PRN ×2 (12:50→12:55)
--- NOTE | 2017-04-24 13:01 | PCM.POSTAN ---
POST ANESTHESIA ASSESSMENT - MENTAL STATUS Mental Status: Alert (no respiratory problems encountered during the anesthetic care period), Oriented - RESPIRATORY Respiratory Status: Respiratory Rate WNL, Airway Patent, O2 Saturation Stable - CARDIOVASCULAR CV Status: Pulse Rate WNL, Blood Pressure Stable - GASTROINTESTINAL GI Status: No Symptoms - POST OP HYDRATION Hydration Status: Adequate & Stable
--- NOTE | 2017-04-24 13:39 | PCM.OPNOTE ---
- General Post-Op/Procedure Note Date of Surgery/Procedure: 04/24/17 Operative Procedure(s): lap aisha Findings: gb w severe adherence to surrounding organs, yellow and green cw chronic cholecystitis; see dict [id number] Pre Op Diagnosis: chronic cholecystitis Post-Op Diagnosis: Same Anesthesia Technique: General ET Tube Primary Surgeon: Justice Carballo Pathology: sent Complications: None Condition: Good Free Text/Narrative:: Intake & Output 04/23/17 04/24/17 04/24/17 22:59 06:59 14:59 Intake Total 1600 Output Total 150 Balance 1450
[2017-04-24] MEDS ORDERED: Acetaminophen/oxyCODONE 325-5 MG Tab PO PRN (14:45)
[2017-04-24] MEDS ORDERED: Ondansetron 4 MG/2 ML SDV IVPUSH PRN (14:47)
[2017-04-24] MEDS: Lactated Ringers 1,000 ML IV SCH (14:54)
--- NOTE | 2017-04-24 15:36 | OR ---
SURGEON: Justice Carballo MD DATE OF PROCEDURE: 04/24/2017 PREOPERATIVE DIAGNOSIS: Chronic cholecystitis. POSTOPERATIVE DIAGNOSIS: Chronic cholecystitis. PROCEDURE PERFORMED: Laparoscopic cholecystectomy. COMPLICATIONS: None. FINDINGS: Gallbladder with severe adherence to surrounding all organ yellow and green consistent with chronic cholecystitis. PROCEDURE NOTE: The patient was taken to the operating room and placed in the supine position. After the intubation of general endotracheal anesthesia, the patient's abdomen was prepped and draped in the usual sterile fashion. Using Optiview, a 12 mm trocar was placed supraumbilically and then followed with pneumoperitoneum. A 5 mm trocar was placed in the epigastrium and two 5 mm trocars placed in the right upper quadrant. The placement of the last three trocars was done under direct video supervision. Upon gaining entrance to the abdominal cavity, an extensive examination was then performed. The gallbladder was located and identified and retracted to the dome of the liver at the triangle of Calot. The cystic duct was clipped three more times and then using the endoscopic clip, was transected with placement of the endoscopic clip and transection was performed with care, ensuring the posterior prong of the instruments were clearly visualized prior to exercising the procedure. The gallbladder was dissected using electrocautery out of the liver bed and then removed using endoscopic bag through the umbilical site. The gallbladder was removed en bloc and there was no bile spillage and this was then followed with extensive irrigation until the bile was clear from blood and bile. The trocars were then removed under direct video supervision. The 12 mm umbilical site was then closed with deep stitches using 0 Vicryl followed with proximal stitches using 3-0 Vicryl and Dermabond. The other three trocar sites were closed with 3-0 Vicryl followed with approximation of skin with Dermabond. The patient was then awakened and extubated and transferred to the recovery room in hemodynamically stable condition. At the conclusion of the surgery, before closing the abdominal wound, instrument count and sponge count were done and were correct. The patient tolerated the procedure well and there were no intraoperative complications. Dr. Carballo was present through the whole procedure. Just before surgery, a timeout was called. The patient was identified and procedure identified and procedure started. BERTHA / DANITZA /[id number]
[2017-04-24] MEDS ORDERED: Albuterol 8 GM Inhaler INH PRN (15:39)
[2017-04-24] MEDS ORDERED: Diazepam 2 MG Tab PO ONE (17:00)
[2017-04-24] MEDS ORDERED: Acetaminophen 325 MG Tab PO PRN (17:30)
[2017-04-24] MEDS: Ibuprofen 400 MG Tab PO PRN (19:35)
[2017-04-24] MEDS ORDERED: SUMAtriptan 50 MG Tab PO PRN (20:30)
[2017-04-24] MEDS ORDERED: EVENING PRIMROSE OIL 500 MG PO SCH (21:00)
[2017-04-24] MEDS ORDERED: Melatonin 3 MG Tab PO SCH (21:00)
[2017-04-25] MEDS: Lactated Ringers 1,000 ML IV SCH (00:35)
--- NOTE | 2017-04-25 02:22 | PCM48HPAN ---
Post Anesthesia Note - EVALUATION WITHIN 48HRS OF ANESTHETIC Vital Signs in Normal Range: Yes Patient Participated in Evaluation: Yes Respiratory Function Stable: Yes Airway Patent: Yes Cardiovascular Function Stable: Yes Hydration Status Stable: Yes Pain Control Satisfactory: Yes Nausea and Vomiting Control Satisfactory: Yes Mental Status Recovered: Yes
[2017-04-25] MEDS: Ibuprofen 400 MG Tab PO PRN (08:13)
[2017-04-25] MEDS ORDERED: Cetirizine 10 MG Tab PO SCH (09:00)
[2017-04-25] MEDS ORDERED: Prenatal Multivitamin and Multimineral with Iron Tab PO SCH (09:00)
[2017-04-25 09:18] VITALS: BP 106/63
--- NOTE | 2017-04-25 15:35 | CR ---
EXAM DATE: 04/24/17 PATIENT'S AGE: 21 Patient: EMILY UGALDE Facility: [place], [place] : 1995 Study: XRay Chest [id number]/17/2017 6:54:54 PM Ordering Physician: Kait Rendon Final Report: INDICATION: Chest pain, shortness of breath, status post cholecystectomy TECHNIQUE: Chest 2 views. COMPARISON: None FINDINGS: Cardiovascular and mediastinum: Heart size and vasculature are normal in caliber and appearance. Mediastinum is within normal limits. Lungs and pleural spaces: Lungs are clear. No sign of infiltrate or mass. No sign of pleural effusion. No pneumothorax. Bones and soft tissues: Trace pneumoperitoneum consistent with recent cholecystectomy. IMPRESSION: No sign of acute abnormality within the chest. Dictated by Mena Perez MD @ Apr 24 2017 7:40PM (Electronic Signature) Report Signed by Proxy. [facility]
== END 2017-04-25 09:14 | disposition home or self-care (01) ==
LOC: MW.SDS 09:08 → MW.MS 13:00 → UNDODISOB 14:35
PROVIDERS: ADMIT Surgery; ATTEND Surgery
PROC: 0FT44ZZ Resection of Gallbladder, Percutaneous Endoscopic Approach (ICD-10-PCS; principal; 2017-04-24)
DX: K81.1 Chronic cholecystitis (principal); I10 Essential (primary) hypertension; J45.909 Unspecified asthma, uncomplicated; G43.909 Migraine, unspecified, not intractable, without status migrainosus; Z86.73 Personal history of transient ischemic attack (TIA), and cerebral infarction without residual deficits; Z88.5 Allergy status to narcotic agent; Z88.8 Allergy status to other drugs, medicaments and biological substances; Z91.018 Allergy to other foods; Z90.89 Acquired absence of other organs; Z98.890 Other specified postprocedural states; Z79.899 Other long term (current) drug therapy
CPT/HCPCS: 36415; 47562; 71020; 81025; 84484; 93005; A9270; J0690; J1100; J1170; J1885; J2250; J2405; J3010; J7120; 00790; 88304; G0378; J2704

== ENCOUNTER 2017-05-06 15:59 | Emergency (ER) | payer BC, SELFPAY ==
[2017-05-06] MEDS ORDERED: Sodium Chloride 0.9% 1,000 ML IV ONE (16:19)
[2017-05-06] MEDS ORDERED: Albuterol/Ipratropium 3.0-0.5 MG/3 ML Neb Soln NEB ONE (16:22)
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
[2017-05-06 17:20] LABS: CHLORIDE,CL 106 mmol/L (98-110); SODIUM,NA 140 mmol/L (136-146)
[2017-05-06] MEDS ORDERED: Iopamidol 755 MG/ML 500 ML Multipack Bottle IVPUSH STA (17:47)
[2017-05-06 19:00] VITALS: BP 143/80
--- NOTE | 2017-05-07 13:01 | CT ---
EXAM DATE: 05/06/17 PATIENT'S AGE: 21 Patient: EMILY UGALDE Facility: [place], [place] Site . Site : 1995 Study: CT Abdomen/Pelvis [id number]/29/2017 5:46:54 PM Ordering Physician: Ernie Tate Final Report: HISTORY: Abdomen pain. TECHNIQUE: The abdomen and pelvis was scanned using helical technique at 3 mm intervals after 100 cc Isovue-370. Sagittal and coronal were performed. FINDINGS: Lung bases: There is small amount of dependent atelectasis in the posterior lungs. Liver and gallbladder: Liver parenchyma is homogeneous. There are surgical clips in the gallbladder fossa. There is minimal stranding density seen in the gallbladder fossa. No waylon fluid collection is seen. Spleen, hypertension glands: Unremarkable. Kidneys and bladder: Symmetric nephrograms. No hydronephrosis. Bladder is within normal limits. Retroperitoneum and lymph nodes: The abdominal aorta is normal in caliber. No pathologic periaortic adenopathy seen. Small mesenteric lymph nodes are present. GI tract: Stomach is moderately distended. There is some fluid in nondilated small bowel loops. The appendix is normal. There is stool and gas seen scattered throughout the colon. There is no evidence of diverticulitis. There is no free air in the abdomen. There is no free fluid in pelvis. Pelvic organs: Tampon within the vagina. The uterus and ovaries are normal. Abdomen wall: There is increased density in the fat at the umbilicus most likely from recent laparoscopic surgery. Osseous structures: Normal for age. IMPRESSION: 1. Interval cholecystectomy since prior ultrasound of 13 April 2017. There is trace stranding density in the gallbladder fossa without fluid collection. No intrahepatic biliary dilatation. 2. Normal appendix. 3. No bowel obstruction, free air or free fluid. 4. Increased density seen in the fat at the umbilicus most likely from laparoscopic port placement. Dictated by Ghazal Adam MD @ 05/06/2017 6:18:12 PM Dictated by: Ghazal Adam MD @ 05/06/2017 18:18:43 (Electronic Signature) Report Signed by Proxy. [facility]
--- NOTE | 2017-05-07 13:03 | CR ---
EXAM DATE: 05/06/17 PATIENT'S AGE: 21 Patient: EMILY UGALDE Facility: [place], [place] Site . Site : 1995 Study: XRay Chest [id number]/29/2017 5:51:16 PM Ordering Physician: Ernie Tate Final Report: INDICATION: pain TECHNIQUE: Chest 2 views COMPARISON: April 24, 2017. FINDINGS: Cardiovascular and mediastinum: Heart size and vasculature are normal in caliber and appearance. Mediastinum is within normal limits. Lungs and pleural spaces: Low lung volumes. No sign of pleural effusion. No pneumothorax. Bones and soft tissues: No significant findings. Surgical clips in the right upper quadrant. IMPRESSION: No acute cardiopulmonary disease. Dictated by Kurtis Saldana MD @ 05/06/2017 6:56:19 PM Dictated by: Kurtis Saldana MD @ 05/06/2017 18:56:26 (Electronic Signature) Report Signed by Proxy. [facility]
== END 2017-05-06 18:55 | disposition home or self-care (01) ==
LOC: MW.ED 15:59
DX: J06.9 Acute upper respiratory infection, unspecified (principal); Z90.49 Acquired absence of other specified parts of digestive tract; J45.909 Unspecified asthma, uncomplicated; I10 Essential (primary) hypertension; F32.9 Major depressive disorder, single episode, unspecified; E66.9 Obesity, unspecified; Z98.890 Other specified postprocedural states; Z88.5 Allergy status to narcotic agent; Z88.8 Allergy status to other drugs, medicaments and biological substances; Z91.018 Allergy to other foods
CPT/HCPCS: 36415; 71020; 74177; 80053; 81001; 81025; 83605; 83690; 85025; 85610; 87040; 87086; 87088; 87186; 94664; 96360; 96361; 99284; J7040; Q9967; 99283

== ENCOUNTER 2017-06-01 19:18 | Emergency (ER) | payer BC, SELFPAY ==
[2017-06-01] MEDS ORDERED: Amoxicillin/Clavulanate K 875-125 MG Tab PO ONE (19:42)
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
[2017-06-01] MEDS ORDERED: Dexamethasone 4 MG Tab PO ONE (19:43)
[2017-06-01 19:44] VITALS: BP 141/88
== END 2017-06-01 20:05 | disposition home or self-care (01) ==
LOC: MW.ED 19:18
DX: T63.301A Toxic effect of unspecified spider venom, accidental (unintentional), initial encounter (principal); I10 Essential (primary) hypertension; E66.9 Obesity, unspecified; Z88.8 Allergy status to other drugs, medicaments and biological substances; Z88.5 Allergy status to narcotic agent; Z79.899 Other long term (current) drug therapy; Z86.73 Personal history of transient ischemic attack (TIA), and cerebral infarction without residual deficits; Z68.25 Body mass index [BMI] 25.0-25.9, adult
CPT/HCPCS: 99282; A9270; J8540; 99283

== ENCOUNTER 2017-09-11 19:12 | Emergency (ER) | payer BC, OTHER, SELFPAY ==
[2017-09-11] MEDS ORDERED: Albuterol/Ipratropium 3.0-0.5 MG/3 ML Neb Soln ONE (19:18)
[2017-09-11] MEDS ORDERED: methylPREDNISolone Sodium Succinate 125 MG/2 ML SDV IVPUSH ONE ×2 (19:22→19:53)
[2017-09-11] MEDS ORDERED: EPINEPHrine 1 MG/ML SDV IM ONE (19:22)
[2017-09-11] MEDS ORDERED: Albuterol/Ipratropium 3.0-0.5 MG/3 ML Neb Soln NEB ONE (19:22)
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
[2017-09-11] MEDS ORDERED: Sodium Chloride 0.9% 1,000 ML IV ONE (19:26)
[2017-09-11 19:45] LABS: CHLORIDE,CL 106 mmol/L (98-110); SODIUM,NA 140 mmol/L (136-146)
[2017-09-11 21:02] VITALS: BP 141/57
== END 2017-09-11 20:57 | disposition home or self-care (01) ==
LOC: MW.ED 19:12
DX: T78.09XA Anaphylactic reaction due to other food products, initial encounter (principal); I10 Essential (primary) hypertension; J45.909 Unspecified asthma, uncomplicated; F32.9 Major depressive disorder, single episode, unspecified; Z77.22 Contact with and (suspected) exposure to environmental tobacco smoke (acute) (chronic); Z79.899 Other long term (current) drug therapy; Z88.8 Allergy status to other drugs, medicaments and biological substances; Z91.018 Allergy to other foods
CPT/HCPCS: 80053; 80305; 81001; 81025; 85025; 96361; 96372; 96374; 96375; 99285; J0171; J2930; J7040; 99284

== ENCOUNTER 2017-09-12 05:41 | Emergency (ER) | payer BC ==
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
[2017-09-12 06:51] VITALS: BP 124/72
--- NOTE | 2017-09-12 16:35 | CR ---
EXAM DATE: 09/12/17 PATIENT'S AGE: 22 Patient: EMILY UGALDE Facility: [place], [place] Site . Site : 1995 Study: XRay Chest [id number] 6:26:25 AM Ordering Physician: Doctor Mace Final Report: INDICATION: Hypertension. Difficulty breathing. COMPARISON: Two view chest dated 05/06/2017. TECHNIQUE: Two view chest. FINDINGS: The lungs are clear. There is no evidence of pneumothorax. The heart, mediastinum and pulmonary vessels are of normal size. There is no evidence of pleural fluid. IMPRESSION: Negative chest. Dictated by Bebeto Rodriguez MD @ Sep 12 2017 6:31AM (Electronic Signature) Report Signed by Proxy. BRIANNE
== END 2017-09-12 06:48 | disposition home or self-care (01) ==
LOC: MW.ED 05:41
DX: K52.9 Noninfective gastroenteritis and colitis, unspecified (principal); I10 Essential (primary) hypertension; J45.909 Unspecified asthma, uncomplicated; F32.9 Major depressive disorder, single episode, unspecified; Z77.22 Contact with and (suspected) exposure to environmental tobacco smoke (acute) (chronic); Z79.899 Other long term (current) drug therapy; Z88.8 Allergy status to other drugs, medicaments and biological substances; Z91.018 Allergy to other foods
CPT/HCPCS: 71046; 71046-26; 87804; 99284

== ENCOUNTER 2017-12-01 05:09 | Emergency (ER) | payer BC ==
[2017-12-01] MEDS ORDERED: Ondansetron 4 MG/2 ML SDV IVPUSH ONE (05:28)
[2017-12-01] MEDS ORDERED: Sodium Chloride 0.9% 1,000 ML IV ONE ×2 (05:28→06:38)
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
[2017-12-01 06:12] LABS: CHLORIDE,CL 104 mmol/L (98-107); SODIUM,NA 138 mmol/L (136-145)
[2017-12-01 06:40] VITALS: BP 127/69
== END 2017-12-01 08:34 | disposition home or self-care (01) ==
LOC: MW.ED 05:09
DX: O21.0 Mild hyperemesis gravidarum (principal); J45.909 Unspecified asthma, uncomplicated; I10 Essential (primary) hypertension; Z77.22 Contact with and (suspected) exposure to environmental tobacco smoke (acute) (chronic); Z3A.11 11 weeks gestation of pregnancy; Z88.8 Allergy status to other drugs, medicaments and biological substances; Z91.048 Other nonmedicinal substance allergy status
CPT/HCPCS: 36415; 80053; 82150; 83690; 85025; 87804; J2405; J7040; 99283

== ENCOUNTER 2017-12-02 19:08 | Emergency (ER) | payer BC ==
[2017-12-02] MEDS ORDERED: Sodium Chloride 0.9% 1,000 ML IV ONE ×2 (19:16→20:56)
[2017-12-02] MEDS ORDERED: Ondansetron 4 MG/2 ML SDV IVPUSH ONE (19:16)
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
[2017-12-02 20:31] LABS: CHLORIDE,CL 103 mmol/L (98-107); SODIUM,NA 136 mmol/L (136-145)
[2017-12-02] MEDS ORDERED: Promethazine 25 MG/ML SDV IM ONE (21:19)
[2017-12-02] MEDS: Amoxicillin/Clavulanate K 500-125 MG Tab PO ONE ×2 (22:39)
[2017-12-02] MEDS ORDERED: Acetaminophen 500 MG Tab PO ONE (22:42)
[2017-12-03 00:49] VITALS: BP 106/65
== END 2017-12-02 23:40 | disposition home or self-care (01) ==
LOC: MW.ED 19:08
DX: O99.611 Diseases of the digestive system complicating pregnancy, first trimester (principal); K52.9 Noninfective gastroenteritis and colitis, unspecified; O23.41 Unspecified infection of urinary tract in pregnancy, first trimester; O99.281 Endocrine, nutritional and metabolic diseases complicating pregnancy, first trimester; E86.0 Dehydration; O99.411 Diseases of the circulatory system complicating pregnancy, first trimester; I10 Essential (primary) hypertension; Z88.5 Allergy status to narcotic agent; Z91.048 Other nonmedicinal substance allergy status; Z3A.11 11 weeks gestation of pregnancy
CPT/HCPCS: 36415; 80053; 81001; 85025; 87046; 87086; 87899; 96360; 96361; 96372; 99284; A9270; J2405; J2550; J7040; 99283

== ENCOUNTER 2018-03-17 21:38 | Emergency (ER) | payer BC ==
[2018-03-17] MEDS ORDERED: Sodium Chloride 0.9% 10 ML Syringe FLUSH PRN (23:27)
[2018-03-17] MEDS ORDERED: Sodium Chloride 0.9% 2.5 ML Syringe FLUSH PRN (23:27)
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
[2018-03-18] MEDS ORDERED: methylPREDNISolone Sodium Succinate 125 MG/2 ML SDV IVPUSH ONE (00:02)
[2018-03-18 00:10] LABS: CHLORIDE,CL 103 mmol/L (98-107); SODIUM,NA 136 mmol/L (136-145)
[2018-03-18] MEDS ORDERED: Iopamidol 755 MG/ML 50 ML Bottle IV ONE (01:33)
[2018-03-18 02:38] VITALS: BP 111/58
--- NOTE | 2018-03-18 13:22 | CT ---
EXAM DATE: 03/17/18 PATIENT'S AGE: 22 Patient: EMILY UGALDE Facility: [place], [place] Site . Site : 1996 Study: CT Chest Angio [id number]/11/2018 1:38:06 AM Ordering Physician: Ernie Tate Final Report: INDICATION: Shortness of breath, CHEST HEAVINESS, RULE OUT PE. CT CHEST WITH CONTRAST TECHNIQUE: Multidetector axial CT imaging was performed through the chest following intravenous contrast administration using 50mL Isovue 370. COMPARISON: None. FINDINGS: No filling defects are identified in the pulmonary arterial tree to suggest pulmonary emboli. The thoracic aorta shows normal caliber. The lungs are clear aside from mild atelectasis due to shallow inspiration. No pleural effusions. No mediastinal masses or abnormally enlarged lymph nodes. The heart appears within normal limits. Visualized bones show no significant findings. Included portions of the upper abdomen are unremarkable. IMPRESSION: No pulmonary emboli or other acute intrathoracic abnormalities identified. SOFIE KAPOOR MD [employer] Dictated by: Irineo Kapoor MD @ 03/18/2018 01:56:04 (Electronic Signature) Report Signed by Proxy. [facility]
== END 2018-03-18 02:38 | disposition home or self-care (01) ==
LOC: MW.OBCHECK 21:38 → MW.ED 21:38 → EDSTATUS 21:46 → MW.OBCHECK 21:47 → MW.OB 21:47 → EDSTATUS 23:20 → MW.ED 03-18 02:38
DX: O99.89 Other specified diseases and conditions complicating pregnancy, childbirth and the puerperium (principal); R07.9 Chest pain, unspecified; R06.00 Dyspnea, unspecified; O10.013 Pre-existing essential hypertension complicating pregnancy, third trimester; I10 Essential (primary) hypertension; Z3A.26 26 weeks gestation of pregnancy; Z91.09 Other allergy status, other than to drugs and biological substances; Z88.8 Allergy status to other drugs, medicaments and biological substances; Z88.5 Allergy status to narcotic agent
CPT/HCPCS: 36415; 59025; 71275; 80053; 81003; 83880; 84484; 85025; 85610; 93005; 96374; 99285; J2930; Q9967

== ENCOUNTER 2018-05-28 09:43 | Inpatient (IN) | payer BC ==
[2018-05-28] MEDS ORDERED: Tranexamic Acid 1,000 MG in Sodium Chloride 0.9% 100 ML IV PRN (10:46)
[2018-05-28] MEDS ORDERED: Lidocaine 1% 50 ML MDV INJECT PRN (10:46)
[2018-05-28] MEDS ORDERED: Misoprostol 25 MCG (1/4 of 100 MCG) Tab VAG PRN ×2 (10:46→10:53)
[2018-05-28] MEDS ORDERED: Butorphanol 1 MG/ML SDV IVPUSH PRN (10:46)
[2018-05-28] MEDS ORDERED: Terbutaline 1 MG/ML SDV SUBCUT PRN ×2 (10:46→10:53)
[2018-05-28] MEDS ORDERED: Misoprostol 200 MCG Tab PO PRN (10:46)
[2018-05-28] MEDS ORDERED: Water For Irrigation,Sterile 1,000 ML Container IRR PRN (10:46)
[2018-05-28] MEDS ORDERED: Sodium Chloride 0.9% 2.5 ML Syringe FLUSH PRN (10:46)
[2018-05-28] MEDS ORDERED: Carboprost Tromethamine 250 MCG/1 ML Amp IM PRN (10:46)
[2018-05-28] MEDS ORDERED: Sodium Chloride 0.9% 10 ML Syringe FLUSH PRN (10:46)
[2018-05-28] MEDS ORDERED: Methylergonovine 0.2 MG/1 ML Amp IM PRN (10:46)
[2018-05-28] MEDS ORDERED: Oxytocin/0.9 % Sodium Chloride 30 UNIT/500 ML BAG IV SCH ×3 (11:00)
[2018-05-28] MEDS: Lactated Ringers 1,000 ML IV SCH (11:10)
[2018-05-28] MEDS: Misoprostol 25 MCG (1/4 of 100 MCG) Tab PO PRN ×3 (11:41→20:06)
[2018-05-28 11:56] LABS: CHLORIDE,CL 105 mmol/L (98-107); SODIUM,NA 137 mmol/L (136-145)
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
[2018-05-28] MEDS ORDERED: Acetaminophen 500 MG Tab PO PRN (14:16)
[2018-05-28] MEDS: Misoprostol 25 MCG (1/4 of 100 MCG) Tab VAG PRN ×2 (15:49→20:06)
[2018-05-29] MEDS: Lactated Ringers 1,000 ML IV SCH ×3 (00:08→05:23)
[2018-05-29] MEDS: Nalbuphine 10 MG/1 ML Vial IVPUSH PRN ×2 (00:09→01:40)
[2018-05-29] MEDS ORDERED: Ropivacaine 0.2% 2 MG/ML 20 ML SDV ONE (03:16)
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
[2018-05-29] MEDS ORDERED: fentaNYL 100 MCG/2 ML SDV ONE (07:33)
[2018-05-29] MEDS ORDERED: Bupivacaine 0.5% 10 ML SDV ONE (07:33)
[2018-05-29] MEDS ORDERED: Ampicillin 2 GM in Sodium Chloride 0.9% 100 ML IV SCH (08:00)
[2018-05-29] MEDS ORDERED: Ampicillin 2 GM in Sodium Chloride 0.9% 100 ML IV ONE (08:11)
[2018-05-29] MEDS ORDERED: Ibuprofen 400 MG Tab PO PRN (12:10)
[2018-05-29] MEDS ORDERED: Acetaminophen 500 MG Tab PO PRN (12:10)
[2018-05-29] MEDS ORDERED: Ibuprofen 800 MG Tab PO PRN (12:10)
[2018-05-29] MEDS ORDERED: Benzocaine/Menthol 20%-0.5% Spray 78 GM Cannister TOP PRN (12:10)
[2018-05-29] MEDS ORDERED: Docusate Sodium 100 MG Cap PO PRN (12:10)
[2018-05-29] MEDS ORDERED: Bisacodyl 10 MG Supp RECTAL PRN (12:10)
[2018-05-29] MEDS ORDERED: Lanolin 100% Cream 7 GM Tube TOP PRN (12:10)
[2018-05-29] MEDS ORDERED: oxyCODONE 5 MG Tab PO PRN (12:10)
[2018-05-29] MEDS ORDERED: Witch Hazel Medicated Pads 40/Jar TOP PRN (12:10)
--- NOTE | 2018-05-29 12:16 | PCM.DEL ---
L & D Note - General Info Date of Service: 05/29/18 Mother's Due Date: 06/21/18 - Delivery Note Cervical Ripening Method: Misoprostil Delivery Outcome: Livebirth Delivery Method: Spontaneous Vaginal Delivery-Single Delivery Mode: Spontaneous Presentation: Vertex Nuchal Cord: Present Anesthesia Type: None Amniotic Fluid Description: Clear Episiotomy Type: None Laceration: None Placenta: Intact, Spontaneous Cord: 3 Vessels Estimated Blood Loss: 100 Resuscitation Needed: No Second Stage Interventions: Reports: Pushing, Pulls Own Legs Back Induction Criteria - Ramirez Score Ramirez Score Dilation: Closed Ramirez Score Effacement: 40-50% Ramirez Score Infant's Station: -2 Ramirez Score Consistency: Medium Ramirez Score Cervix Position: Posterior Ramirez Score Total: 3 Ramirez Score Presenting Part: Reports: Cephalic - Induction Gestational Age >/= 39 wks: Yes Medical Indication: Elevated BP severe range with MCDONALD and blurred vision Reassuring Monitoring Strip: Yes Absence of Tachy Systole: Yes - General Info Date of Service: 05/29/18 Admission Dx/Problem (Free Text): Patient Status Order with Admit Dx/Problem 05/28/18 10:46 Patient Status [ADT] Routine Admission Diagnosis/Problem Admission Diagnosis/Problem induced hypertension, antepartum 05/28/18 11:51 23 yo EDC 06/21/2018 36 4/7wks, IOL for severe range BP with symptoms. No proteinuria. O+, RI, GBS pending. 05/28/18 12:29 Functional Status: Reports: Pain Controlled, Tolerating Diet, Ambulating, Urinating - Review of Systems General: Reports: No Symptoms HEENT: Reports: No Symptoms Pulmonary: Reports: No Symptoms Cardiovascular: Reports: No Symptoms Gastrointestinal: Reports: No Symptoms Genitourinary: Reports: No Symptoms Musculoskeletal: Reports: No Symptoms Skin: Reports: No Symptoms Neurological: Reports: No Symptoms Psychiatric: Reports: No Symptoms - Patient Data Weight - Most Recent: 92.533 kg Lab Results Last 24 Hours: Laboratory Results - last 24 hr 05/28/18 Range/Units 11:12 Blood Type O POSITIVE Antibody Screen NEGATIVE Med Orders - Current: Current Medications Acetaminophen (Tylenol Extra Strength) 500 mg PO Q4H PRN PRN Reason: Pain Acetaminophen (Tylenol Extra Strength) 1,000 mg PO Q4H PRN PRN Reason: Pain Benzocaine/Menthol (Dermoplast Pain Relief 20%-0.5% [place]) 78 gm TOP ASDIRECTED PRN PRN Reason: Perineal Comfort Measure Bisacodyl (Dulcolax) 10 mg RECTAL ONETIME PRN PRN Reason: Constipation Docusate Sodium (Colace) 100 mg PO BID PRN PRN Reason: Constipation Ibuprofen (Motrin) 400 mg PO Q4H PRN PRN Reason: Pain Discontinued Medications Acetaminophen (Tylenol Extra Strength) 1,000 mg PO Q4H PRN PRN Reason: Headache Last Admin: 05/28/18 14:29 Dose: 1,000 mg Bupivacaine HCl (Sensorcaine-Mpf 0.5%) Confirm Administered Dose 10 ml .ROUTE .STK-MED ONE Stop: 05/29/18 07:34 Carboprost Tromethamine (Hemabate Ds) 250 mcg IM ASDIRECTED PRN PRN Reason: Post Hemorrhage Fentanyl (Sublimaze) Confirm Administered Dose 100 mcg .ROUTE .STK-MED ONE Stop: 05/29/18 07:34 Lactated Ringer's (Ringers, Lactated) 1,000 mls @ 150 mls/hr IV ASDIRECTED JEROMY Last Admin: 05/29/18 05:23 Dose: 250 mls/hr Oxytocin/Sodium Chloride (Oxytocin 30 Unit/500 Ml-Ns) 30 unit in 500 mls @ 999 mls/hr IV TITRATE JEROMY Oxytocin/Sodium Chloride (Oxytocin 30 Unit/500 Ml-Ns) 30 unit in 500 mls @ 2 mls/hr IV TITRATE JEROMY; Protocol Tranexamic Acid 1,000 mg/ (Sodium Chloride) 110 mls @ 660 mls/hr IV ONETIME PRN PRN Reason: Bleeding Oxytocin/Sodium Chloride (Oxytocin 30 Unit/500 Ml-Ns) 30 unit in 500 mls @ 2 mls/hr IV TITRATE JEROMY; Protocol Last Admin: 05/29/18 00:10 Dose: 2 munits/min, 2 mls/hr Fentanyl/Bupivacaine HCl (Nufwcgrm-Nagpj-Ml 2 Mcg/Ml-0.125%) Confirm Administered Dose 100 mls @ as directed EP .STK-MED ONE Stop: 05/29/18 03:17 Ampicillin Sodium 2 gm/ Sodium (Chloride) 100 mls @ 200 mls/hr IV ONETIME ONE Stop: 05/29/18 08:40 Last Admin: 05/29/18 08:18 Dose: 200 mls/hr Lidocaine HCl (Xylocaine 1%) 50 ml INJECT ONETIME PRN PRN Reason: Laceration repair Methylergonovine Maleate (Methergine) 0.2 mg IM ASDIRECTED PRN PRN Reason: Post Hemorrhage Misoprostol (Cytotec) 200 mcg PO ONETIME PRN PRN Reason: Post Hemorrhage Misoprostol (Cytotec) 25 mcg VAG ONETIME PRN PRN Reason: Cervical Ripening Last Admin: 05/28/18 20:06 Dose: 25 mcg Misoprostol (Cytotec) 25 mcg VAG Q4H PRN PRN Reason: Cervical Ripening Last Admin: 05/28/18 11:40 Dose: 25 mcg Misoprostol (Cytotec) 25 mcg VAG Q4H PRN PRN Reason: Cervical Ripening Misoprostol (Cytotec) 25 mcg PO Q4H PRN PRN Reason: Cervical Ripening Last Admin: 05/28/18 20:06 Dose: 25 mcg Nalbuphine HCl (Nubain) 10 mg IVPUSH Q1H PRN PRN Reason: Pain (severe 7-10) Last Admin: 05/29/18 01:40 Dose: 10 mg Ropivacaine (Naropin 0.2%) Confirm Administered Dose 20 ml .ROUTE .STK-MED ONE Stop: 05/29/18 03:17 Sodium Chloride (Saline Flush) 10 ml FLUSH ASDIRECTED PRN PRN Reason: Keep Vein Open Sodium Chloride (Saline Flush) 2.5 ml FLUSH ASDIRECTED PRN PRN Reason: Keep Vein Open Sterile Water (Sterile Water For Irrigation) 1,000 ml IRR ASDIRECTED PRN PRN Reason: delivery Terbutaline Sulfate (Brethine) 0.25 mg SUBCUT ASDIRECTED PRN PRN Reason: Tacysystole Terbutaline Sulfate (Brethine) 0.25 mg SUBCUT ASDIRECTED PRN PRN Reason: Tacysystole - Exam General: Alert, Oriented, Cooperative, No Acute Distress Cardiovascular: Regular Rhythm (Female) Exam: Normal External Exam, Normal Bimanual Exam, Vaginal Bleeding Back Exam: Normal Inspection, Full Range of Motion Extremities: Normal Inspection, Normal Range of Motion, Non-Tender, Normal Capillary Refill, Pedal Edema Skin: Warm, Dry, Intact Wound/Incisions: Healing Well Neurological: No New Focal Deficit, Normal Speech, Normal Tone, Strength Equal Bilateral Psy/Mental Status: Alert, Normal Affect, Normal Mood - Problem List & Annotations (1) Supervision of normal IUP (intrauterine ) in primigravida SNOMED Code(s): 22277717, 554536137, 368832601, 004883304 Code(s): Z34.00 - ENCNTR FOR SUPRVSN OF NORMAL FIRST , UNSP TRIMESTER Status: Acute Priority: High Current Visit: Yes Qualifiers: Trimester: third trimester Qualified Code(s): Z34.03 - Encounter for supervision of normal first , third trimester (2) Elevated blood pressure affecting in third trimester, antepartum SNOMED Code(s): 04035673, 30546988, 328929214 Code(s): O16.3 - UNSPECIFIED MATERNAL HYPERTENSION, THIRD TRIMESTER Status : Acute Priority: High Current Visit: Yes (3) (normal spontaneous vaginal delivery) SNOMED Code(s): 54264450 Code(s): O80 - ENCOUNTER FOR FULL-TERM UNCOMPLICATED DELIVERY Status: Acute Priority: High Current Visit: Yes - Problem List Review Problem List Initiated/Reviewed/Updated: Yes - My Orders Last 24 Hours: My Active Orders 05/29/18 12:10 May Shower [RC] ASDIRECTED Up ad Yenny [RC] ASDIRECTED Vital Signs [RC] PER UNIT ROUTINE Acetaminophen [Tylenol Extra Strength] 1,000 mg PO Q4H PRN Acetaminophen [Tylenol Extra Strength] 500 mg PO Q4H PRN Benzocaine/Menthol [Dermoplast Pain Relief 20%-0.5% [place]] 78 gm TOP ASDIRECTED PRN Bisacodyl [Dulcolax] 10 mg RECTAL ONETIME PRN Docusate Sodium [Colace] 100 mg PO BID PRN Ibuprofen [Motrin] 400 mg PO Q4H PRN Ibuprofen [Motrin] 800 mg PO Q6H PRN Lanolin [Lansinoh HPA] See Dose Instructions TOP ASDIRECTED PRN Witch Daja [Tucks] 1 pad TOP ASDIRECTED PRN oxyCODONE 5 mg PO Q2H PRN Assess Lochia [WOMSER] Per Unit Routine Assess Uterine Involution [WOMSER] Per Unit Routine Peripheral IV Discontinue [OM.PC] Routine 05/29/18 12:11 Patient Status [ADT] Routine 05/29/18 Lunch Regular Diet [DIET] - Plan Plan:: IOL A: 23 yo EDC 06/21/2018 36 4/7wks, IOL for severe range BP with symptoms. No proteinuria. O+, RI, GBS pending. P: Admit, cytotec to pitocin, epidural prn, Dr Patel updated Delivery A: of viable male, APGARS pending, Wt: 6lb 6oz. Intact perineum, EBL 100cc , mother left in stable condition. Baby at warmer with Dr Chapman, Michael PNP, Resp, and Peds RN. Crying and pink. P: Routine pp plan of care
[2018-05-29] MEDS: Acetaminophen 500 MG Tab PO PRN (22:05)
[2018-05-30] MEDS: Acetaminophen 500 MG Tab PO PRN ×2 (05:00→20:58)
--- NOTE | 2018-05-30 09:38 | PCM48HPAN ---
Post Anesthesia Note - EVALUATION WITHIN 48HRS OF ANESTHETIC Vital Signs in Normal Range: Yes Patient Participated in Evaluation: Yes Respiratory Function Stable: Yes Airway Patent: Yes Cardiovascular Function Stable: Yes Hydration Status Stable: Yes Pain Control Satisfactory: Yes Nausea and Vomiting Control Satisfactory: Yes Mental Status Recovered: Yes Resp Rate: 18
--- NOTE | 2018-05-30 09:50 | PCM.PNPP ---
- General Info Date of Service: 05/30/18 Admission Dx/Problem (Free Text): Patient Status Order with Admit Dx/Problem 05/28/18 10:46 Patient Status [ADT] Routine Admission Diagnosis/Problem Admission Diagnosis/Problem induced hypertension, antepartum 05/28/18 11:51 23 yo EDC 06/21/2018 36 4/7wks, IOL for severe range BP with symptoms. No proteinuria. O+, RI, GBS pending. 05/28/18 12:29 Functional Status: Reports: Pain Controlled, Tolerating Diet, Ambulating, Urinating - Review of Systems General: Reports: No Symptoms HEENT: Reports: No Symptoms Pulmonary: Reports: No Symptoms Cardiovascular: Reports: No Symptoms Gastrointestinal: Reports: No Symptoms Genitourinary: Reports: No Symptoms Musculoskeletal: Reports: No Symptoms Skin: Reports: No Symptoms Neurological: Reports: No Symptoms Psychiatric: Reports: No Symptoms - Patient Data Vital Signs - Most Recent: Last Vital Signs Temp 36.9 C 05/30/18 05:30 Pulse 81 05/30/18 05:30 Resp 18 05/30/18 09:38 BP 117/67 05/30/18 05:30 Pulse Ox 96 05/30/18 05:30 Weight - Most Recent: 92.533 kg Med Orders - Current: Current Medications Acetaminophen (Tylenol Extra Strength) 500 mg PO Q4H PRN PRN Reason: Pain Last Admin: 05/30/18 05:00 Dose: 500 mg Acetaminophen (Tylenol Extra Strength) 1,000 mg PO Q4H PRN PRN Reason: Pain Benzocaine/Menthol (Dermoplast Pain Relief 20%-0.5% [place]) 78 gm TOP ASDIRECTED PRN PRN Reason: Perineal Comfort Measure Last Admin: 05/29/18 16:44 Dose: 1 can Bisacodyl (Dulcolax) 10 mg RECTAL ONETIME PRN PRN Reason: Constipation Docusate Sodium (Colace) 100 mg PO BID PRN PRN Reason: Constipation Emollient Ointment (Lansinoh Hpa) 0 gm TOP ASDIRECTED PRN PRN Reason: Sore Nipples Ibuprofen (Motrin) 400 mg PO Q4H PRN PRN Reason: Pain Ibuprofen (Motrin) 800 mg PO Q6H PRN PRN Reason: Pain Oxycodone HCl (Oxycodone) 5 mg PO Q2H PRN PRN Reason: Pain Witch Daja (Tucks) 1 pad TOP ASDIRECTED PRN PRN Reason: comfort care Discontinued Medications Acetaminophen (Tylenol Extra Strength) 1,000 mg PO Q4H PRN PRN Reason: Headache Last Admin: 05/28/18 14:29 Dose: 1,000 mg Bupivacaine HCl (Sensorcaine-Mpf 0.5%) Confirm Administered Dose 10 ml .ROUTE .STK-MED ONE Stop: 05/29/18 07:34 Carboprost Tromethamine (Hemabate Ds) 250 mcg IM ASDIRECTED PRN PRN Reason: Post Hemorrhage Fentanyl (Sublimaze) Confirm Administered Dose 100 mcg .ROUTE .STK-MED ONE Stop: 05/29/18 07:34 Lactated Ringer's (Ringers, Lactated) 1,000 mls @ 150 mls/hr IV ASDIRECTED JEROMY Last Admin: 05/29/18 05:23 Dose: 250 mls/hr Oxytocin/Sodium Chloride (Oxytocin 30 Unit/500 Ml-Ns) 30 unit in 500 mls @ 999 mls/hr IV TITRATE JEROMY Oxytocin/Sodium Chloride (Oxytocin 30 Unit/500 Ml-Ns) 30 unit in 500 mls @ 2 mls/hr IV TITRATE JEROMY; Protocol Tranexamic Acid 1,000 mg/ (Sodium Chloride) 110 mls @ 660 mls/hr IV ONETIME PRN PRN Reason: Bleeding Oxytocin/Sodium Chloride (Oxytocin 30 Unit/500 Ml-Ns) 30 unit in 500 mls @ 2 mls/hr IV TITRATE JEROMY; Protocol Last Titration: 05/29/18 11:54 Dose: 500 munits/min, 500 mls/hr Fentanyl/Bupivacaine HCl (Dtpfqtdx-Ppwuw-Rx 2 Mcg/Ml-0.125%) Confirm Administered Dose 100 mls @ as directed EP .STK-MED ONE Stop: 05/29/18 03:17 Ampicillin Sodium 2 gm/ Sodium (Chloride) 100 mls @ 200 mls/hr IV ONETIME ONE Stop: 05/29/18 08:40 Last Admin: 05/29/18 08:18 Dose: 200 mls/hr Lidocaine HCl (Xylocaine 1%) 50 ml INJECT ONETIME PRN PRN Reason: Laceration repair Methylergonovine Maleate (Methergine) 0.2 mg IM ASDIRECTED PRN PRN Reason: Post Hemorrhage Misoprostol (Cytotec) 200 mcg PO ONETIME PRN PRN Reason: Post Hemorrhage Misoprostol (Cytotec) 25 mcg VAG ONETIME PRN PRN Reason: Cervical Ripening Last Admin: 05/28/18 20:06 Dose: 25 mcg Misoprostol (Cytotec) 25 mcg VAG Q4H PRN PRN Reason: Cervical Ripening Last Admin: 05/28/18 11:40 Dose: 25 mcg Misoprostol (Cytotec) 25 mcg VAG Q4H PRN PRN Reason: Cervical Ripening Misoprostol (Cytotec) 25 mcg PO Q4H PRN PRN Reason: Cervical Ripening Last Admin: 05/28/18 20:06 Dose: 25 mcg Nalbuphine HCl (Nubain) 10 mg IVPUSH Q1H PRN PRN Reason: Pain (severe 7-10) Last Admin: 05/29/18 01:40 Dose: 10 mg Ropivacaine (Naropin 0.2%) Confirm Administered Dose 20 ml .ROUTE .STK-MED ONE Stop: 05/29/18 03:17 Sodium Chloride (Saline Flush) 10 ml FLUSH ASDIRECTED PRN PRN Reason: Keep Vein Open Sodium Chloride (Saline Flush) 2.5 ml FLUSH ASDIRECTED PRN PRN Reason: Keep Vein Open Sterile Water (Sterile Water For Irrigation) 1,000 ml IRR ASDIRECTED PRN PRN Reason: delivery Terbutaline Sulfate (Brethine) 0.25 mg SUBCUT ASDIRECTED PRN PRN Reason: Tacysystole Terbutaline Sulfate (Brethine) 0.25 mg SUBCUT ASDIRECTED PRN PRN Reason: Tacysystole - Infant Interaction Disposition, : in Room with Family Infant Interaction: Holding Feeding: Breastfed ; Nursed Well Support Person: Significant Other, Other (see below) - Recovery Exam Fundal Tone: Firm Fundal Level: 1 Fingerbreadths Above Umbilicus Fundal Placement: Midline Lochia Amount: Scant Lochia Color: Rubra/Red Perineum Description: Intact, Minimal Bruising/Swelling Episiotomy/Laceration: None Bladder Status: Voiding Urinary Elimination: Voided - Exam General: Alert, Oriented, Cooperative, No Acute Distress Lungs: Normal Respiratory Effort GI/Abdominal Exam: Soft, Non-Tender Extremities: Normal Inspection, Normal Range of Motion, Non-Tender, Normal Capillary Refill, Pedal Edema Skin: Warm, Dry, Intact Wound/Incisions: Healing Well Neurological: No New Focal Deficit, Normal Gait, Normal Speech, Normal Tone, Strength Equal Bilateral Psy/Mental Status: Alert, Normal Affect, Normal Mood - Problem List & Annotations (1) Supervision of normal IUP (intrauterine ) in primigravida SNOMED Code(s): 61917954, 117955703, 457035506, 006150879 Code(s): Z34.00 - ENCNTR FOR SUPRVSN OF NORMAL FIRST , UNSP TRIMESTER Status: Acute Priority: High Current Visit: Yes Qualifiers: Trimester: third trimester Qualified Code(s): Z34.03 - Encounter for supervision of normal first , third trimester (2) Elevated blood pressure affecting in third trimester, antepartum SNOMED Code(s): 04915440, 17957203, 525556833 Code(s): O16.3 - UNSPECIFIED MATERNAL HYPERTENSION, THIRD TRIMESTER Status : Acute Priority: High Current Visit: Yes (3) (normal spontaneous vaginal delivery) SNOMED Code(s): 28025589 Code(s): O80 - ENCOUNTER FOR FULL-TERM UNCOMPLICATED DELIVERY Status: Acute Priority: High Current Visit: Yes - Problem List Review Problem List Initiated/Reviewed/Updated: Yes - My Orders Last 24 Hours: My Active Orders 05/29/18 12:10 May Shower [RC] ASDIRECTED Up ad Yenny [RC] ASDIRECTED Vital Signs [RC] PER UNIT ROUTINE Acetaminophen [Tylenol Extra Strength] 1,000 mg PO Q4H PRN Acetaminophen [Tylenol Extra Strength] 500 mg PO Q4H PRN Benzocaine/Menthol [Dermoplast Pain Relief 20%-0.5% [place]] 78 gm TOP ASDIRECTED PRN Bisacodyl [Dulcolax] 10 mg RECTAL ONETIME PRN Docusate Sodium [Colace] 100 mg PO BID PRN Ibuprofen [Motrin] 400 mg PO Q4H PRN Ibuprofen [Motrin] 800 mg PO Q6H PRN Lanolin [Lansinoh HPA] See Dose Instructions TOP ASDIRECTED PRN Witch Daja [Tucks] 1 pad TOP ASDIRECTED PRN oxyCODONE 5 mg PO Q2H PRN Assess Lochia [WOMSER] Per Unit Routine Assess Uterine Involution [WOMSER] Per Unit Routine Peripheral IV Discontinue [OM.PC] Routine 05/29/18 12:11 Patient Status [ADT] Routine 05/29/18 Lunch Regular Diet [DIET] - Plan Plan:: IOL A: 23 yo EDC 06/21/2018 36 4/7wks, IOL for severe range BP with symptoms. No proteinuria. O+, RI, GBS pending. P: Admit, cytotec to pitocin, epidural prn, Dr Patel updated Delivery A: of viable male, APGARS pending, Wt: 6lb 6oz. Intact perineum, EBL 100cc , mother left in stable condition. Baby at warmer with Dr Chapman, Michael PNP, Resp, and Peds RN. Crying and pink. P: Routine pp plan of care PPD#1 A: VSS, AF, lochia small (passed lg clot but fundus firm), FF -2BU, Walking in the room. Infant in crib at bs. FOB sleeping. Stable P: continue pp plan of care
[2018-05-31 09:20] VITALS: BP 121/70
--- NOTE | 2018-05-31 10:35 | PCM.DCSUM1 ---
Discharge Summary - Hospital Course Free Text/Narrative:: Discharge home with infant. Follow up in 6 weeks for post . Diagnosis: Stroke: No - Discharge Data Discharge Date: 05/31/18 Discharge Disposition: Home, Self-Care 01 Condition: Good - Discharge Diagnosis/Problem(s) (1) Supervision of normal IUP (intrauterine ) in primigravida SNOMED Code(s): 95156151, 129264996, 734735301, 128754545 ICD Code: Z34.00 - ENCNTR FOR SUPRVSN OF NORMAL FIRST , UNSP TRIMESTER Status: Acute Priority: High Current Visit: Yes Qualifiers: Trimester: third trimester Qualified Code(s): Z34.03 - Encounter for supervision of normal first , third trimester (2) Elevated blood pressure affecting in third trimester, antepartum SNOMED Code(s): 49473912, 62188583, 290086187 ICD Code: O16.3 - UNSPECIFIED MATERNAL HYPERTENSION, THIRD TRIMESTER Status : Acute Priority: High Current Visit: Yes (3) (normal spontaneous vaginal delivery) SNOMED Code(s): 68820116 ICD Code: O80 - ENCOUNTER FOR FULL-TERM UNCOMPLICATED DELIVERY Status: Acute Priority: High Current Visit: Yes - Patient Instructions Diet: Usual Diet as Tolerated Activity: As Tolerated, No Strenuous Activities, Rest and Relax Today Driving: May Drive Today Showering/Bathing: May Shower Notify Provider of: Fever, Increased Pain, Swelling and Redness, Nausea and/or Vomiting Other/Special Instructions: Discharge home with infant. Follow up in 6 weeks for post . - Discharge Plan *PRESCRIPTION DRUG MONITORING PROGRAM REVIEWED*: Not Applicable *COPY OF PRESCRIPTION DRUG MONITORING REPORT IN PATIENT [place]: Not Applicable Home Medications: Home Meds Albuterol Sulfate [Proair Respiclick] 2 puff INH ASDIRECTED PRN 09/04/16 [ History] Vits96/Iron Fum/Folic [ Tablet] 1 tab PO DAILY 04/13/18 [ History] Referrals: [facility] [Outside] Mckenzie Lara CNM [Mid-] - 07/09/18 8:30 am - General Info Date of Service: 05/31/18 Admission Dx/Problem (Free Text: Patient Status Order with Admit Dx/Problem 05/28/18 10:46 Patient Status [ADT] Routine Admission Diagnosis/Problem Admission Diagnosis/Problem induced hypertension, antepartum 05/28/18 11:51 23 yo EDC 06/21/2018 36 4/7wks, IOL for severe range BP with symptoms. No proteinuria. O+, RI, GBS pending. 05/28/18 12:29 Functional Status: Reports: Pain Controlled, Tolerating Diet, Ambulating, Urinating - Review of Systems General: Reports: No Symptoms HEENT: Reports: No Symptoms Pulmonary: Reports: No Symptoms Cardiovascular: Reports: No Symptoms Gastrointestinal: Reports: No Symptoms Genitourinary: Reports: No Symptoms Musculoskeletal: Reports: No Symptoms Skin: Reports: No Symptoms Neurological: Reports: No Symptoms Psychiatric: Reports: No Symptoms - Patient Data Vitals - Most Recent: Last Vital Signs Temp 36.4 C 05/31/18 09:10 Pulse 86 05/31/18 09:10 Resp 16 05/31/18 09:10 BP 121/70 05/31/18 09:10 Pulse Ox 95 05/31/18 04:00 Weight - Most Recent: 92.533 kg Med Orders - Current: Current Medications Acetaminophen (Tylenol Extra Strength) 500 mg PO Q4H PRN PRN Reason: Pain Last Admin: 05/30/18 20:58 Dose: 500 mg Acetaminophen (Tylenol Extra Strength) 1,000 mg PO Q4H PRN PRN Reason: Pain Benzocaine/Menthol (Dermoplast Pain Relief 20%-0.5% [place]) 78 gm TOP ASDIRECTED PRN PRN Reason: Perineal Comfort Measure Last Admin: 05/29/18 16:44 Dose: 1 can Bisacodyl (Dulcolax) 10 mg RECTAL ONETIME PRN PRN Reason: Constipation Docusate Sodium (Colace) 100 mg PO BID PRN PRN Reason: Constipation Last Admin: 05/31/18 09:23 Dose: 100 mg Emollient Ointment (Lansinoh Hpa) 0 gm TOP ASDIRECTED PRN PRN Reason: Sore Nipples Ibuprofen (Motrin) 400 mg PO Q4H PRN PRN Reason: Pain Ibuprofen (Motrin) 800 mg PO Q6H PRN PRN Reason: Pain Oxycodone HCl (Oxycodone) 5 mg PO Q2H PRN PRN Reason: Pain Witch Daja (Tucks) 1 pad TOP ASDIRECTED PRN PRN Reason: comfort care Discontinued Medications Acetaminophen (Tylenol Extra Strength) 1,000 mg PO Q4H PRN PRN Reason: Headache Last Admin: 05/28/18 14:29 Dose: 1,000 mg Bupivacaine HCl (Sensorcaine-Mpf 0.5%) Confirm Administered Dose 10 ml .ROUTE .STK-MED ONE Stop: 05/29/18 07:34 Carboprost Tromethamine (Hemabate Ds) 250 mcg IM ASDIRECTED PRN PRN Reason: Post Hemorrhage Fentanyl (Sublimaze) Confirm Administered Dose 100 mcg .ROUTE .STK-MED ONE Stop: 05/29/18 07:34 Lactated Ringer's (Ringers, Lactated) 1,000 mls @ 150 mls/hr IV ASDIRECTED JEROMY Last Admin: 05/29/18 05:23 Dose: 250 mls/hr Oxytocin/Sodium Chloride (Oxytocin 30 Unit/500 Ml-Ns) 30 unit in 500 mls @ 999 mls/hr IV TITRATE JEROMY Oxytocin/Sodium Chloride (Oxytocin 30 Unit/500 Ml-Ns) 30 unit in 500 mls @ 2 mls/hr IV TITRATE JEROMY; Protocol Tranexamic Acid 1,000 mg/ (Sodium Chloride) 110 mls @ 660 mls/hr IV ONETIME PRN PRN Reason: Bleeding Oxytocin/Sodium Chloride (Oxytocin 30 Unit/500 Ml-Ns) 30 unit in 500 mls @ 2 mls/hr IV TITRATE JEROMY; Protocol Last Titration: 05/29/18 11:54 Dose: 500 munits/min, 500 mls/hr Fentanyl/Bupivacaine HCl (Qyjdmpcb-Jatnw-Bk 2 Mcg/Ml-0.125%) Confirm Administered Dose 100 mls @ as directed EP .STK-MED ONE Stop: 05/29/18 03:17 Ampicillin Sodium 2 gm/ Sodium (Chloride) 100 mls @ 200 mls/hr IV ONETIME ONE Stop: 05/29/18 08:40 Last Admin: 05/29/18 08:18 Dose: 200 mls/hr Lidocaine HCl (Xylocaine 1%) 50 ml INJECT ONETIME PRN PRN Reason: Laceration repair Methylergonovine Maleate (Methergine) 0.2 mg IM ASDIRECTED PRN PRN Reason: Post Hemorrhage Misoprostol (Cytotec) 200 mcg PO ONETIME PRN PRN Reason: Post Hemorrhage Misoprostol (Cytotec) 25 mcg VAG ONETIME PRN PRN Reason: Cervical Ripening Last Admin: 05/28/18 20:06 Dose: 25 mcg Misoprostol (Cytotec) 25 mcg VAG Q4H PRN PRN Reason: Cervical Ripening Last Admin: 05/28/18 11:40 Dose: 25 mcg Misoprostol (Cytotec) 25 mcg VAG Q4H PRN PRN Reason: Cervical Ripening Misoprostol (Cytotec) 25 mcg PO Q4H PRN PRN Reason: Cervical Ripening Last Admin: 05/28/18 20:06 Dose: 25 mcg Nalbuphine HCl (Nubain) 10 mg IVPUSH Q1H PRN PRN Reason: Pain (severe 7-10) Last Admin: 05/29/18 01:40 Dose: 10 mg Ropivacaine (Naropin 0.2%) Confirm Administered Dose 20 ml .ROUTE .[facility]-MED ONE Stop: 05/29/18 03:17 Sodium Chloride (Saline Flush) 10 ml FLUSH ASDIRECTED PRN PRN Reason: Keep Vein Open Sodium Chloride (Saline Flush) 2.5 ml FLUSH ASDIRECTED PRN PRN Reason: Keep Vein Open Sterile Water (Sterile Water For Irrigation) 1,000 ml IRR ASDIRECTED PRN PRN Reason: delivery Terbutaline Sulfate (Brethine) 0.25 mg SUBCUT ASDIRECTED PRN PRN Reason: Tacysystole Terbutaline Sulfate (Brethine) 0.25 mg SUBCUT ASDIRECTED PRN PRN Reason: Tacysystole - Exam General: Reports: Alert, Oriented, Cooperative, No Acute Distress Lungs: Reports: Clear to Auscultation, Normal Respiratory Effort Cardiovascular: Reports: Regular Rate, Regular Rhythm, No Murmurs GI/Abdominal Exam: Soft, Non-Tender (Female) Exam: Vaginal Bleeding Rectal (Female) Exam: Deferred Back Exam: Reports: Normal Inspection, Full Range of Motion Extremities: Normal Inspection, Normal Range of Motion, Non-Tender, Normal Capillary Refill, Pedal Edema Skin: Reports: Warm, Dry, Intact Wound/Incisions: Reports: Healing Well Neurological: Reports: No New Focal Deficit, Normal Gait, Normal Speech, Normal Tone, Strength Equal Bilateral Psy/Mental Status: Reports: Alert, Normal Affect, Normal Mood
== END 2018-05-31 12:55 | disposition home or self-care (01) | DRG 560 ==
LOC: MW.OBCHECK 09:43 → MW.OB 09:46 → MW.OBCHECK 11:38 → OBSVTOIN 05-29 12:11
PROVIDERS: ADMIT Obstetrics & Gynecology; ATTEND Obstetrics & Gynecology
PROC: 10E0XZZ Delivery of Products of Conception, External Approach (ICD-10-PCS; principal; 2018-05-29)
PROC: 3E0P7VZ Introduction of Hormone into Female Reproductive, Via Natural or Artificial Opening (ICD-10-PCS; 2018-05-29)
PROC: 00HU33Z Insertion of Infusion Device into Spinal Canal, Percutaneous Approach (ICD-10-PCS; 2018-05-29)
DX: O13.4 Gestational [pregnancy-induced] hypertension without significant proteinuria, complicating childbirth (principal); Z3A.36 36 weeks gestation of pregnancy; Z37.0 Single live birth
CPT/HCPCS: 36415; 59025; 59409; 80053; 82570; 84156; 84550; 85027; 86850; 86900; 86901; A9270-GY; J0290; J2300; J2590; J7030; J7120

== ENCOUNTER 2018-09-26 19:22 | Emergency (ER) | payer BC ==
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
[2018-09-26] MEDS ORDERED: Ketorolac 60 MG/2 ML SDV IM ONE (20:19)
[2018-09-26] MEDS ORDERED: cefTRIAXone 1 GM in Lidocaine 1% 4 ML IM ONE (20:25)
[2018-09-26 20:42] LABS: CHLORIDE,CL 107 mmol/L (98-107); SODIUM,NA 143 mmol/L (136-145)
[2018-09-26 21:25] VITALS: BP 139/78
--- NOTE | 2018-09-26 22:36 | CT ---
INDICATION: Upper jaw pain TECHNIQUE: CT facial bones without contrast. COMPARISON: None FINDINGS: There is marked mucosal thickening of the bilateral maxillary sinuses possible air-fluid level on the left. Ostiomeatal units are opacified bilaterally. There is moderate mucosal thickening of the bilateral sphenoid sinuses and mild mucosal thickening of the left frontal sinus and bilateral ethmoid air cells. Mastoid air cells are well aerated. Nasal septum is deviated to the right. Orbital stallworth are intact. Mandible, maxilla, zygomatic arches, nasal bone, and visualized calvarium are intact. Orbits are within normal limits. Visualized intracranial contents are unremarkable. IMPRESSION: Phillips paranasal sinus disease with possible air-fluid level in the left maxillary sinus. Recommend clinical correlation for acute sinusitis. Please note that all CT scans at this facility use dose modulation, iterative reconstruction, and/or weight-based dosing when appropriate to reduce radiation dose to as low as reasonably achievable. Dictated by Misty Shah MD @ Sep 26 2018 10:27PM Signed by Dr. Misty Shah @ Sep 26 2018 10:34PM
== END 2018-09-26 22:51 | disposition home or self-care (01) ==
LOC: MW.ED 19:22
DX: J01.00 Acute maxillary sinusitis, unspecified (principal); I10 Essential (primary) hypertension; Z79.2 Long term (current) use of antibiotics; Z79.899 Other long term (current) drug therapy; Z88.8 Allergy status to other drugs, medicaments and biological substances
CPT/HCPCS: 36415; 70486; 80048; 81025; 85025; 87081; 87804; 87880; 96372; 99284; J0696; J1885; J2001

== ENCOUNTER 2018-10-28 10:49 | Emergency (ER) | payer BC ==
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
[2018-10-28] MEDS ORDERED: Ketorolac 60 MG/2 ML SDV IM ONE (11:21)
[2018-10-28] MEDS ORDERED: Ondansetron 4 MG Tab.DIS PO ONE (11:21)
[2018-10-28] MEDS ORDERED: Sodium Chloride 0.9% 1,000 ML IV ONE (12:42)
[2018-10-28 13:37] LABS: CHLORIDE,CL 101 mmol/L (98-107); SODIUM,NA 135 mmol/L (136-145)
[2018-10-28 14:20] VITALS: BP 124/80
== END 2018-10-28 14:27 | disposition home or self-care (01) ==
LOC: MW.ED 10:49
DX: J02.9 Acute pharyngitis, unspecified (principal); B34.9 Viral infection, unspecified; I10 Essential (primary) hypertension; E66.9 Obesity, unspecified; Z88.8 Allergy status to other drugs, medicaments and biological substances; Z79.899 Other long term (current) drug therapy
CPT/HCPCS: 36415; 80053; 85025; 87081; 87804; 87880; 96361; 96374; 99283; A9270; J1885; J7040

== ENCOUNTER 2018-11-02 13:38 | Emergency (ER) | payer BC ==
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
[2018-11-02 14:40] LABS: CHLORIDE,CL 101 mmol/L (98-107); SODIUM,NA 138 mmol/L (136-145)
[2018-11-02 15:48] VITALS: BP 136/87
== END 2018-11-02 15:48 | disposition home or self-care (01) ==
LOC: MW.ED 13:38
DX: R10.30 Lower abdominal pain, unspecified (principal); I10 Essential (primary) hypertension; F41.9 Anxiety disorder, unspecified; F32.9 Major depressive disorder, single episode, unspecified; E66.9 Obesity, unspecified; Z88.5 Allergy status to narcotic agent; Z88.8 Allergy status to other drugs, medicaments and biological substances; Z91.018 Allergy to other foods; Z86.73 Personal history of transient ischemic attack (TIA), and cerebral infarction without residual deficits; Z98.890 Other specified postprocedural states
CPT/HCPCS: 36415; 80053; 81001; 84703; 85025; 99284

== ENCOUNTER 2019-02-08 18:05 | Emergency (ER) | payer BC, OTHER, SELFPAY ==
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
[2019-02-08 20:39] VITALS: BP 119/67
== END 2019-02-08 20:35 | disposition home or self-care (01) ==
LOC: MW.ED 18:05
DX: L30.9 Dermatitis, unspecified (principal); I10 Essential (primary) hypertension; Z88.5 Allergy status to narcotic agent; Z88.8 Allergy status to other drugs, medicaments and biological substances; Z79.899 Other long term (current) drug therapy
CPT/HCPCS: 99282; 99283

== ENCOUNTER 2021-09-15 15:51 | Emergency (ER) | payer BC ==
[2021-09-15] MEDS ORDERED: Ondansetron 4 MG/2 ML SDV IVPUSH ONE (16:14)
[2021-09-15] MEDS ORDERED: Acetaminophen 500 MG Tab PO ONE (16:14)
[2021-09-15] MEDS ORDERED: Ketorolac 30 MG/ML SDV IVPUSH ONE (16:14)
[2021-09-15] MEDS ORDERED: Sodium Chloride 0.9% 1,000 ML IV ONE (16:14)
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
[2021-09-15 16:46] LABS: CORONAVIRUS COVID-19 NAA NEGATIVE (NEGATIVE); INFLUENZA A NAA NEGATIVE (NEGATIVE); INFLUENZA B NAA NEGATIVE (NEGATIVE)
[2021-09-15 17:08] LABS: BLOOD UREA NITROGEN,BUN 12 mg/dL (7.0-18.0); CARBON DIOXIDE,CO2 25.6 mmol/L (21.0-32.0); CHLORIDE,CL 102 mmol/L (98-107); GLUCOSE RANDOM 99 mg/dL (74-106); POTASSIUM,K 3.5 mmol/L (3.5-5.1); SODIUM,NA 139 mmol/L (136-145)
--- NOTE | 2021-09-15 17:14 | CR ---
INDICATION: Cough, shortness of breath. TECHNIQUE: Portable AP chest radiograph. COMPARISON: 09/12/2017. FINDINGS: Low lung volumes. Mild patchy bibasilar opacities. No pneumothorax or pleural effusion. Normal cardiac and mediastinal contours. IMPRESSION: Low volume study. Mild patchy bibasilar opacities may reflect atelectasis/crowding and/or atypical infection. Dictated by Devin Perez MD @ 09/15/2021 5:13:49 PM Dictated by: Devin Perez MD @ 09/15/2021 17:13:56 (Electronically Signed)
[2021-09-15] MEDS ORDERED: cefTRIAXone 1 GM in Sodium Chloride 0.9% 50 ML IV ONE (17:28)
[2021-09-15] MEDS ORDERED: Azithromycin 500 MG in Sodium Chloride 0.9% 250 ML IV SCH (17:30)
[2021-09-15 19:46] VITALS: BP 111/64; PULSE 93
== END 2021-09-15 19:45 | disposition home or self-care (01) ==
LOC: MW.ED 15:51
DX: J18.9 Pneumonia, unspecified organism (principal); I10 Essential (primary) hypertension; J45.909 Unspecified asthma, uncomplicated; E66.9 Obesity, unspecified; Z68.33 Body mass index [BMI] 33.0-33.9, adult; Z91.048 Other nonmedicinal substance allergy status; Z88.8 Allergy status to other drugs, medicaments and biological substances; Z88.5 Allergy status to narcotic agent; Z79.899 Other long term (current) drug therapy; Z20.822 Contact with and (suspected) exposure to COVID-19
CPT/HCPCS: 0240U; 36415; 71045; 80053; 83605; 84703; 85025; 85379; 96365; 96367; 96375; 99285; A9270; J0456; J0696; J1885; J2405; J7030; J7050

== ENCOUNTER 2021-09-18 15:22 | Emergency (ER) | payer BC ==
[2021-09-18] MEDS ORDERED: Benzonatate 100 MG Cap PO ONE (15:53)
--- NOTE | 2021-09-18 16:04 | PCM.EKG ---
#1 Interpretation EKG Interpretation Comments: EKG performed 09/18/2021 at 3:34 PM shows sinus tachycardia heart rate 102 IA 133 QT duration 438 axis 76 Baseline wander makes it difficult but apparently the T waves have some questionably normal or abnormal configuration. Impression no obvious injury or ischemia.
--- NOTE | 2021-09-18 16:23 | CR ---
INDICATION: COVID, cough, shortness of breath TECHNIQUE: AP view of the chest COMPARISON: AP chest radiograph on 04/2022 FINDINGS: Focal airspace opacity is suggested in the lateral left lung base. No appreciable pulmonary opacity seen on the right. There is no evidence of pleural effusion or pneumothorax. The cardiomediastinal silhouette is normal. The visualized osseous structures are unremarkable. IMPRESSION: Possible focal opacity in the lateral left lung base, suggesting infiltrate. Dictated by David Del Valle MD @ 09/18/2021 4:22:32 PM (Electronically Signed)
[2021-09-18 16:31] VITALS: BP 142/83
[2021-09-18] MEDS ORDERED: Albuterol 8 GM Inhaler INH ONE (16:36)
[2021-09-18] MEDS ORDERED: predniSONE 10 MG Tab PO STA (16:37)
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
[2021-09-18 16:48] LABS: BLOOD UREA NITROGEN,BUN 17 mg/dL (7.0-18.0); CARBON DIOXIDE,CO2 24.8 mmol/L (21.0-32.0); CHLORIDE,CL 103 mmol/L (98-107); GLUCOSE RANDOM 100 mg/dL (74-106); POTASSIUM,K 3.8 mmol/L (3.5-5.1); SODIUM,NA 138 mmol/L (136-145)
[2021-09-18 17:02] VITALS: PULSE 94
== END 2021-09-18 17:09 | disposition home or self-care (01) ==
LOC: MW.ED 15:22
DX: J18.9 Pneumonia, unspecified organism (principal); I10 Essential (primary) hypertension; J45.909 Unspecified asthma, uncomplicated; E66.9 Obesity, unspecified; Z68.34 Body mass index [BMI] 34.0-34.9, adult; Z88.5 Allergy status to narcotic agent; Z88.8 Allergy status to other drugs, medicaments and biological substances; Z91.048 Other nonmedicinal substance allergy status; Z79.899 Other long term (current) drug therapy
CPT/HCPCS: 36415; 71045; 80053; 85025; 93005; 99285; A9270

== ENCOUNTER 2021-10-16 15:33 | Emergency (ER) | payer BC ==
[2021-10-16] MEDS ORDERED: Sodium Chloride 0.9% 1,000 ML IV ONE (15:35)
[2021-10-16] MEDS ORDERED: Ondansetron 4 MG/2 ML SDV IVPUSH ONE (15:35)
[2021-10-16] MEDS ORDERED: Ketorolac 30 MG/ML SDV IVPUSH ONE (15:35)
[2021-10-16] MEDS ORDERED: methylPREDNISolone Sodium Succinate 125 MG/2 ML SDV IVPUSH ONE (15:56)
[2021-10-16] MEDS ORDERED: diphenhydrAMINE 50 MG/ML SDV IVPUSH ONE (15:56)
[2021-10-16 17:23] VITALS: BP 125/73; PULSE 82
== END 2021-10-16 17:21 | disposition home or self-care (01) ==
LOC: MW.ED 15:33
DX: R55 Syncope and collapse (principal); I10 Essential (primary) hypertension; J45.909 Unspecified asthma, uncomplicated; E66.9 Obesity, unspecified; Z68.29 Body mass index [BMI] 29.0-29.9, adult; Z91.018 Allergy to other foods; Z88.8 Allergy status to other drugs, medicaments and biological substances; Z88.5 Allergy status to narcotic agent; Z79.899 Other long term (current) drug therapy
CPT/HCPCS: 36415; 71045; 83605; 83735; 84484; 85025; 93005; 96374; 96375; 99284; J1200; J1885; J2405; J2930; J7030

== ENCOUNTER 2021-11-16 13:00 | Emergency (ER) | payer BC ==
[2021-11-16] MEDS ORDERED: Sodium Chloride 0.9% 10 ML Syringe FLUSH PRN (13:10)
[2021-11-16] MEDS ORDERED: Sodium Chloride 0.9% 1,000 ML IV ONE (13:10)
[2021-11-16] MEDS ORDERED: diphenhydrAMINE 50 MG/ML SDV IVPUSH ONE (13:10)
[2021-11-16] MEDS ORDERED: Sodium Chloride 0.9% 2.5 ML Syringe FLUSH PRN (13:10)
[2021-11-16] MEDS ORDERED: Acetaminophen/Butalbital/Caffeine 325-50-40 MG Tab PO ONE (13:12)
[2021-11-16] MEDS ORDERED: Ondansetron 4 MG/2 ML SDV IVPUSH ONE (13:12)
[2021-11-16] MEDS ORDERED: Dexamethasone 10 MG/ML SDV IVPUSH ONE (13:21)
[2021-11-16 14:01] LABS: BLOOD UREA NITROGEN,BUN 17 mg/dL (7.0-18.0); CARBON DIOXIDE,CO2 29.4 mmol/L (21.0-32.0); CHLORIDE,CL 104 mmol/L (98-107); ESTIMATED GFR > 60.0 ml/min; GLUCOSE RANDOM 97 mg/dL (74-106); SODIUM,NA 140 mmol/L (136-145)
[2021-11-16] MEDS ORDERED: HYDROmorphone 1 MG/ML Syringe IVPUSH ONE ×2 (14:52→15:47)
[2021-11-16] MEDS ORDERED: Haloperidol Lactate 5 MG/ML SDV IM ONE (14:56)
[2021-11-16] MEDS ORDERED: Iopamidol 755 MG/ML 500 ML Multipack Bottle IVPUSH ONE (16:30)
[2021-11-16 17:01] VITALS: BP 114/63; PULSE 80
== END 2021-11-16 16:52 | disposition home or self-care (01) ==
LOC: MW.ED 13:00
DX: G43.909 Migraine, unspecified, not intractable, without status migrainosus (principal); I10 Essential (primary) hypertension; E66.9 Obesity, unspecified; Z68.31 Body mass index [BMI] 31.0-31.9, adult; Z79.899 Other long term (current) drug therapy; Z88.8 Allergy status to other drugs, medicaments and biological substances; Z91.041 Radiographic dye allergy status
CPT/HCPCS: 36415; 70450; 70496; 70498; 80053; 83735; 84703; 85025; 96372; 96374; 96375; 99284; A9270; J1100; J1170; J1200; J1630; J2405; J7030; Q9967; J3490

== ENCOUNTER 2021-11-19 17:21 | Emergency (ER) | payer BC ==
[2021-11-19 19:01] VITALS: BP 132/71; PULSE 71
== END 2021-11-19 19:02 | disposition home or self-care (01) ==
LOC: MW.ED 17:21
DX: R55 Syncope and collapse (principal); I10 Essential (primary) hypertension; E66.9 Obesity, unspecified; Z68.35 Body mass index [BMI] 35.0-35.9, adult; Z86.73 Personal history of transient ischemic attack (TIA), and cerebral infarction without residual deficits; Z88.5 Allergy status to narcotic agent; Z91.048 Other nonmedicinal substance allergy status
CPT/HCPCS: 36415; 81003; 83735; 93005; 93010; 99284; 99284-25

== ENCOUNTER 2021-11-21 12:14 | Observation (INO) | payer BC ==
[2021-11-21] MEDS ORDERED: Ondansetron 4 MG/2 ML SDV IVPUSH ONE (12:36)
[2021-11-21 13:40] LABS: BLOOD UREA NITROGEN,BUN 20 mg/dL (7.0-18.0); CARBON DIOXIDE,CO2 24.4 mmol/L (21.0-32.0); CHLORIDE,CL 100 mmol/L (98-107); GLUCOSE RANDOM 101 mg/dL (74-106); SODIUM,NA 137 mmol/L (136-145)
[2021-11-21] MEDS ORDERED: Acetaminophen 500 MG Tab PO ONE (13:52)
[2021-11-21] MEDS ORDERED: Ketorolac 30 MG/ML SDV IVPUSH ONE (15:27)
[2021-11-21] MEDS ORDERED: Ondansetron 4 MG/2 ML SDV IVPUSH PRN (17:53)
[2021-11-21] MEDS ORDERED: Albuterol/Ipratropium 3.0-0.5 MG/3 ML Neb Soln NEB PRN (17:53)
[2021-11-21] MEDS ORDERED: Iopamidol 755 MG/ML 500 ML Multipack Bottle IVPUSH ONE (18:07)
[2021-11-21] MEDS ORDERED: Acetaminophen 325 MG Tab PO PRN (23:06)
[2021-11-21] MEDS: Topiramate 50 MG Tab PO SCH (23:39)
[2021-11-22] MEDS: Lactated Ringers 1,000 ML IV SCH ×3 (00:06→20:06)
[2021-11-22 06:19] LABS: BLOOD UREA NITROGEN,BUN 19 mg/dL (7.0-18.0); CARBON DIOXIDE,CO2 22.2 mmol/L (21.0-32.0); CHLORIDE,CL 103 mmol/L (98-107); GLUCOSE RANDOM 100 mg/dL (74-106); POTASSIUM,K 3.8 mmol/L (3.5-5.1); SODIUM,NA 138 mmol/L (136-145)
[2021-11-22] MEDS ORDERED: sulfaSALAzine 500 MG Tab PO SCH (09:00)
[2021-11-22] MEDS: Topiramate 50 MG Tab PO SCH ×2 (09:59→20:06)
[2021-11-22] MEDS: Hydroxychloroquine 200 MG Tab PO SCH ×3 (09:59→20:06)
[2021-11-22] MEDS ORDERED: LORazepam 2 MG/ML SDV IVPUSH ONE (16:54)
[2021-11-22] MEDS ORDERED: LORazepam 2 MG/ML SDV IVPUSH PRN (18:17)
[2021-11-22 20:43] VITALS: BP 137/89; PULSE 89
[2021-11-22] MEDS ORDERED: levETIRAcetam 500 MG Tab PO SCH (21:00)
[2021-11-22] MEDS ORDERED: VERAPAMIL HCL 120 MG PO SCH (21:00)
== END 2021-11-22 23:31 ==
LOC: MW.ED 12:14 → MW.MS 16:48
PROVIDERS: ADMIT Student in an Organized Health Care Education/Training Program; ATTEND Student in an Organized Health Care Education/Training Program
DX: R55 Syncope and collapse (principal); S09.90XA Unspecified injury of head, initial encounter; I10 Essential (primary) hypertension; M32.9 Systemic lupus erythematosus, unspecified; J45.909 Unspecified asthma, uncomplicated; E66.9 Obesity, unspecified; Z68.35 Body mass index [BMI] 35.0-35.9, adult; R29.818 Other symptoms and signs involving the nervous system; Z91.018 Allergy to other foods; Z91.041 Radiographic dye allergy status; Z88.8 Allergy status to other drugs, medicaments and biological substances; Z88.5 Allergy status to narcotic agent; Z90.49 Acquired absence of other specified parts of digestive tract; Z90.89 Acquired absence of other organs; Z79.52 Long term (current) use of systemic steroids; Z79.899 Other long term (current) drug therapy; Z86.73 Personal history of transient ischemic attack (TIA), and cerebral infarction without residual deficits; X58.XXXA Exposure to other specified factors, initial encounter; Z20.822 Contact with and (suspected) exposure to COVID-19
CPT/HCPCS: 36415; 70450; 71045; 71260; 72125; 80048; 80053; 83605; 83735; 84146; 84484; 84703; 85025; 85379; 87635; 93005; 93306; 96374; 96375; 96376; 99285; A9270; G0378; J1885; J1953; J2060; J2405; J7120; Q9967; 99291; U0002

== ENCOUNTER 2022-01-14 20:13 | Emergency (ER) | payer OTHER, BC ==
[2022-01-14 21:49] VITALS: BP 130/85; PULSE 76
== END 2022-01-14 22:00 | disposition home or self-care (01) ==
LOC: MW.ED 20:13
DX: M54.2 Cervicalgia (principal); M25.512 Pain in left shoulder; E66.9 Obesity, unspecified; Z68.30 Body mass index [BMI] 30.0-30.9, adult; Z91.048 Other nonmedicinal substance allergy status; Z88.5 Allergy status to narcotic agent; Z91.041 Radiographic dye allergy status; Z86.73 Personal history of transient ischemic attack (TIA), and cerebral infarction without residual deficits
CPT/HCPCS: 71045; 71045-26; 72125; 72125-26; 73030-26-LT; 73030-LT; 99282; 99284-25

== ENCOUNTER 2022-02-02 14:21 | Emergency (ER) | payer BC ==
[2022-02-02] MEDS ORDERED: EPINEPHrine 1 MG/ML SDV ONE ×2 (14:25→14:43)
[2022-02-02] MEDS ORDERED: EPINEPHrine 1 MG/1 ML Amp IM ONE ×2 (14:25→14:34)
[2022-02-02] MEDS ORDERED: Sodium Chloride 0.9% 1,000 ML IV ONE (14:25)
[2022-02-02] MEDS ORDERED: methylPREDNISolone Sodium Succinate 125 MG/2 ML SDV IVPUSH ONE (14:26)
[2022-02-02] MEDS ORDERED: diphenhydrAMINE 50 MG/ML SDV IVPUSH ONE (14:27)
[2022-02-02 15:14] LABS: BLOOD UREA NITROGEN,BUN 15 mg/dL (7.0-18.0); CARBON DIOXIDE,CO2 23.4 mmol/L (21.0-32.0); CHLORIDE,CL 105 mmol/L (98-107); GLUCOSE RANDOM 106 mg/dL (74-106); POTASSIUM,K 3.6 mmol/L (3.5-5.1); SODIUM,NA 140 mmol/L (136-145)
[2022-02-02 18:19] VITALS: BP 105/62; PULSE 102
== END 2022-02-02 18:15 | disposition home or self-care (01) ==
LOC: MW.ED 14:21
DX: T78.2XXA Anaphylactic shock, unspecified, initial encounter (principal); I10 Essential (primary) hypertension; E66.9 Obesity, unspecified; Z68.30 Body mass index [BMI] 30.0-30.9, adult; Z86.73 Personal history of transient ischemic attack (TIA), and cerebral infarction without residual deficits; Z86.16 Personal history of COVID-19; Z90.49 Acquired absence of other specified parts of digestive tract; Z79.899 Other long term (current) drug therapy; Z91.018 Allergy to other foods; Z91.041 Radiographic dye allergy status; Z88.5 Allergy status to narcotic agent; Z88.8 Allergy status to other drugs, medicaments and biological substances; Z20.822 Contact with and (suspected) exposure to COVID-19
CPT/HCPCS: 36415; 71045; 80053; 82947; 83735; 84443; 84484; 84703; 85025; 87635; 93005; 96372; 96374; 96375; 99285; J0171; J1200; J2930; J7030; 93010; U0002

== ENCOUNTER 2022-02-14 17:34 | Emergency (ER) | payer BC ==
[2022-02-14 18:53] LABS: BLOOD UREA NITROGEN,BUN 13 mg/dL (7.0-18.0); CARBON DIOXIDE,CO2 27.1 mmol/L (21.0-32.0); CHLORIDE,CL 104 mmol/L (98-107); GLUCOSE RANDOM 91 mg/dL (74-106); POTASSIUM,K 3.7 mmol/L (3.5-5.1); SODIUM,NA 136 mmol/L (136-145)
[2022-02-14 18:54] LABS: ESTIMATED GFR > 60.0 ml/min
[2022-02-14] MEDS ORDERED: LORazepam 1 MG Tab PO ONE (18:54)
[2022-02-14 19:21] LABS: CORONAVIRUS COVID-19 NAA NEGATIVE (NEGATIVE); INFLUENZA A NAA NEGATIVE (NEGATIVE); INFLUENZA B NAA NEGATIVE (NEGATIVE)
[2022-02-15 02:54] VITALS: BP 125/85; PULSE 99
== END 2022-02-14 20:44 | disposition home or self-care (01) ==
LOC: MW.ED 17:34
DX: R07.89 Other chest pain (principal); J45.909 Unspecified asthma, uncomplicated; I10 Essential (primary) hypertension; E66.9 Obesity, unspecified; Z68.35 Body mass index [BMI] 35.0-35.9, adult; Z86.73 Personal history of transient ischemic attack (TIA), and cerebral infarction without residual deficits; Z86.16 Personal history of COVID-19; Z90.49 Acquired absence of other specified parts of digestive tract; Z79.899 Other long term (current) drug therapy; Z91.018 Allergy to other foods; Z88.8 Allergy status to other drugs, medicaments and biological substances; Z91.041 Radiographic dye allergy status; Z88.5 Allergy status to narcotic agent; Z20.822 Contact with and (suspected) exposure to COVID-19
CPT/HCPCS: 0240U; 36415; 71046; 80053; 84484; 84703; 85025; 93005; 99285; A9270; 93010; 99284

== ENCOUNTER 2022-03-05 12:54 | Emergency (ER) | payer BC ==
[2022-03-05] MEDS ORDERED: Sodium Chloride 0.9% 2.5 ML Syringe FLUSH PRN (13:09)
[2022-03-05] MEDS ORDERED: Sodium Chloride 0.9% 1,000 ML IV ONE (13:09)
[2022-03-05] MEDS ORDERED: Sodium Chloride 0.9% 10 ML Syringe FLUSH PRN (13:09)
[2022-03-05] MEDS ORDERED: Ondansetron 4 MG/2 ML SDV IVPUSH ONE (13:09)
[2022-03-05 13:56] LABS: CARBON DIOXIDE,CO2 26.4 mmol/L (21.0-32.0); POTASSIUM,K 3.8 mmol/L (3.5-5.1)
[2022-03-05 16:23] VITALS: BP 122/86; PULSE 83
== END 2022-03-05 14:41 | disposition home or self-care (01) ==
LOC: MW.ED 12:54
DX: I49.8 Other specified cardiac arrhythmias (principal); R11.2 Nausea with vomiting, unspecified; I10 Essential (primary) hypertension; F41.9 Anxiety disorder, unspecified; F32.A Depression, unspecified; Z79.899 Other long term (current) drug therapy; Z91.018 Allergy to other foods; Z88.5 Allergy status to narcotic agent; Z88.8 Allergy status to other drugs, medicaments and biological substances
CPT/HCPCS: 36415; 80053; 84703; 85025; 96361; 96374; 99284; J2405; J3490; J7030; 99283

== ENCOUNTER 2022-03-09 20:00 | Emergency (ER) | payer BC ==
[2022-03-09] MEDS ORDERED: methylPREDNISolone Sodium Succinate 125 MG/2 ML SDV IVPUSH ONE (20:02)
[2022-03-09] MEDS ORDERED: diphenhydrAMINE 50 MG/ML SDV IVPUSH ONE (20:02)
[2022-03-09] MEDS ORDERED: Famotidine 20 MG Tab PO ONE (20:02)
[2022-03-09] MEDS ORDERED: Ondansetron 4 MG/2 ML SDV IVPUSH ONE (20:02)
[2022-03-09] MEDS ORDERED: Famotidine 20 MG/2 ML SDV IVPUSH ONE (20:06)
[2022-03-10 00:30] VITALS: BP 135/81; PULSE 74
== END 2022-03-10 00:25 | disposition home or self-care (01) ==
LOC: MW.ED 20:00
DX: T78.1XXA Other adverse food reactions, not elsewhere classified, initial encounter (principal); I10 Essential (primary) hypertension; E66.9 Obesity, unspecified; Z68.35 Body mass index [BMI] 35.0-35.9, adult; Z86.73 Personal history of transient ischemic attack (TIA), and cerebral infarction without residual deficits; Z91.018 Allergy to other foods; Z91.041 Radiographic dye allergy status; Z88.5 Allergy status to narcotic agent; Z88.8 Allergy status to other drugs, medicaments and biological substances
CPT/HCPCS: 96374; 96375; 99283; J1200; J2405; J2930; J3490; 99285

== ENCOUNTER 2022-04-05 23:12 | Emergency (ER) | payer BC ==
[2022-04-06] MEDS ORDERED: Sodium Chloride 0.9% 1,000 ML IV ONE (00:10)
[2022-04-06] MEDS ORDERED: Ketorolac 30 MG/ML SDV IVPUSH ONE (00:10)
[2022-04-06] MEDS ORDERED: Albuterol 8 GM Inhaler INH STA (00:12)
[2022-04-06 01:10] LABS: CARBON DIOXIDE,CO2 24.8 mmol/L (21.0-32.0); POTASSIUM,K 3.7 mmol/L (3.5-5.1)
[2022-04-06] MEDS ORDERED: Albuterol/Ipratropium 3.0-0.5 MG/3 ML Neb Soln NEB STA (01:36)
[2022-04-06] MEDS ORDERED: Ondansetron 4 MG/2 ML SDV IVPUSH ONE (01:36)
[2022-04-06] MEDS ORDERED: methylPREDNISolone Sodium Succinate 500 MG/4 ML SDV IVPUSH STA (01:37)
[2022-04-06] MEDS ORDERED: Benzonatate 100 MG Cap PO STA (01:37)
[2022-04-06] MEDS ORDERED: methylPREDNISolone Sodium Succinate 125 MG/2 ML SDV IVPUSH STA (01:53)
[2022-04-06 02:35] VITALS: BP 128/72; PULSE 90
== END 2022-04-06 02:25 | disposition home or self-care (01) ==
LOC: MW.ED 23:12
DX: J20.9 Acute bronchitis, unspecified (principal); I10 Essential (primary) hypertension; E66.9 Obesity, unspecified; Z68.35 Body mass index [BMI] 35.0-35.9, adult; Z86.73 Personal history of transient ischemic attack (TIA), and cerebral infarction without residual deficits; Z91.041 Radiographic dye allergy status; Z88.5 Allergy status to narcotic agent; Z91.048 Other nonmedicinal substance allergy status; Z20.822 Contact with and (suspected) exposure to COVID-19
CPT/HCPCS: 36415; 71045; 80053; 84703; 85025; 87635; 96361; 96374; 96375; 99283; A9270; J1885; J2405; J2930; J7030; 99284; J7620-GY; U0002

== ENCOUNTER 2022-04-13 21:26 | Emergency (ER) | payer BC ==
[2022-04-13] MEDS ORDERED: Ciprofloxacin/Dexamethasone 0.3-0.1% Otic Susp 7.5 ML Bottle EARLF STA (21:56)
[2022-04-13 22:13] VITALS: BP 137/82; PULSE 74
== END 2022-04-13 22:13 | disposition home or self-care (01) ==
LOC: MW.ED 21:26
DX: H65.92 Unspecified nonsuppurative otitis media, left ear (principal); E66.9 Obesity, unspecified; I10 Essential (primary) hypertension; Z91.041 Radiographic dye allergy status; Z88.5 Allergy status to narcotic agent; Z91.048 Other nonmedicinal substance allergy status; Z68.35 Body mass index [BMI] 35.0-35.9, adult; Z86.73 Personal history of transient ischemic attack (TIA), and cerebral infarction without residual deficits
CPT/HCPCS: 99282

== ENCOUNTER 2022-05-07 22:59 | Emergency (ER) | payer BC ==
[2022-05-08] MEDS ORDERED: Ketorolac 30 MG/ML SDV IM STA ×2 (02:38→06:11)
[2022-05-08] MEDS ORDERED: Cephalexin 500 MG Cap PO ONE (02:52)
[2022-05-08 06:47] VITALS: BP 131/78; PULSE 78
== END 2022-05-08 06:10 | disposition home or self-care (01) ==
LOC: MW.ED 22:59
DX: N39.0 Urinary tract infection, site not specified (principal); I10 Essential (primary) hypertension; E66.9 Obesity, unspecified; Z68.33 Body mass index [BMI] 33.0-33.9, adult; Z91.018 Allergy to other foods; Z91.041 Radiographic dye allergy status; Z88.8 Allergy status to other drugs, medicaments and biological substances; Z88.5 Allergy status to narcotic agent; Z79.899 Other long term (current) drug therapy; Z86.16 Personal history of COVID-19; Z90.49 Acquired absence of other specified parts of digestive tract
CPT/HCPCS: 76830; 81001; 96372; 99284; A9270; J1885; 99283

== ENCOUNTER 2022-07-29 13:18 | Emergency (ER) | payer SELFPAY ==
[2022-07-29] MEDS ORDERED: diphenhydrAMINE 50 MG/ML SDV IM ONE (13:24)
[2022-07-29] MEDS ORDERED: Ondansetron 4 MG Tab.DIS PO ONE (13:24)
[2022-07-29] MEDS ORDERED: Famotidine 20 MG Tab PO ONE (13:25)
[2022-07-29] MEDS ORDERED: predniSONE 20 MG Tab PO ONE (13:25)
[2022-07-29 13:35] VITALS: BP 145/83; PULSE 89
== END 2022-07-29 14:42 | disposition home or self-care (01) ==
LOC: MW.ED 13:18
DX: T78.40XA Allergy, unspecified, initial encounter (principal); I10 Essential (primary) hypertension; E66.9 Obesity, unspecified; Z68.30 Body mass index [BMI] 30.0-30.9, adult; Z91.018 Allergy to other foods; Z91.041 Radiographic dye allergy status; Z88.8 Allergy status to other drugs, medicaments and biological substances; Z79.899 Other long term (current) drug therapy; Z86.16 Personal history of COVID-19; Z90.49 Acquired absence of other specified parts of digestive tract
CPT/HCPCS: 96372; 99283; A9270; J1200

== ENCOUNTER 2022-08-16 01:30 | Emergency (ER) | payer BC ==
[2022-08-16] MEDS ORDERED: Sodium Chloride 0.9% 10 ML Syringe FLUSH PRN (01:55)
[2022-08-16] MEDS ORDERED: Sodium Chloride 0.9% 1,000 ML IV ONE (01:55)
[2022-08-16] MEDS ORDERED: Ondansetron 4 MG/2 ML SDV IVPUSH ONE (01:55)
[2022-08-16] MEDS ORDERED: Sodium Chloride 0.9% 2.5 ML Syringe FLUSH PRN (01:55)
[2022-08-16] MEDS ORDERED: Ketorolac 30 MG/ML SDV IVPUSH ONE (01:56)
[2022-08-16 02:24] LABS: CORONAVIRUS COVID-19 NAA POSITIVE (NEGATIVE); INFLUENZA A NAA NEGATIVE (NEGATIVE); INFLUENZA B NAA NEGATIVE (NEGATIVE)
[2022-08-16 02:55] LABS: POTASSIUM,K 3.9 mmol/L (3.5-5.1)
[2022-08-16 03:24] VITALS: BP 122/82; PULSE 79
== END 2022-08-16 03:23 | disposition home or self-care (01) ==
LOC: MW.ED 01:30
DX: U07.1 COVID-19 (principal); B34.9 Viral infection, unspecified; E66.9 Obesity, unspecified; Z68.33 Body mass index [BMI] 33.0-33.9, adult; Z91.018 Allergy to other foods; Z91.041 Radiographic dye allergy status; Z88.5 Allergy status to narcotic agent; Z79.899 Other long term (current) drug therapy; Z90.49 Acquired absence of other specified parts of digestive tract
CPT/HCPCS: 0240U; 36415; 71046; 80053; 85025; 96361; 96374; 96375; 99285; J1885; J2405; J3490; J7030

== ENCOUNTER 2022-08-27 16:00 | Emergency (ER) | payer BC ==
[2022-08-27 18:34] LABS: BLOOD UREA NITROGEN,BUN 14 mg/dL (7.0-18.0); CARBON DIOXIDE,CO2 28.9 mmol/L (21.0-32.0); CHLORIDE,CL 104 mmol/L (98-107); GLUCOSE RANDOM 97 mg/dL (74-106); POTASSIUM,K 3.8 mmol/L (3.5-5.1); SODIUM,NA 140 mmol/L (136-145)
[2022-08-27 18:35] LABS: ESTIMATED GFR 122 mL/min (>60)
[2022-08-27 19:03] VITALS: BP 136/88; PULSE 90
== END 2022-08-27 19:02 | disposition home or self-care (01) ==
LOC: MW.ED 16:00
DX: R07.89 Other chest pain (principal); I10 Essential (primary) hypertension; E66.9 Obesity, unspecified; Z68.32 Body mass index [BMI] 32.0-32.9, adult; Z79.899 Other long term (current) drug therapy
CPT/HCPCS: 36415; 80053; 84484; 93005; 99284

== ENCOUNTER 2022-10-01 17:06 | Emergency (ER) | payer BC ==
[2022-10-01 19:44] VITALS: BP 130/86; PULSE 86
== END 2022-10-01 17:57 | disposition home or self-care (01) ==
LOC: MW.ED 17:06
DX: R55 Syncope and collapse (principal); I10 Essential (primary) hypertension; E66.9 Obesity, unspecified; Z68.35 Body mass index [BMI] 35.0-35.9, adult; Z91.041 Radiographic dye allergy status; Z91.018 Allergy to other foods; Z88.5 Allergy status to narcotic agent; Z88.8 Allergy status to other drugs, medicaments and biological substances; Z79.899 Other long term (current) drug therapy; Z86.73 Personal history of transient ischemic attack (TIA), and cerebral infarction without residual deficits; Z86.16 Personal history of COVID-19; Z90.49 Acquired absence of other specified parts of digestive tract
CPT/HCPCS: 93005; 99284